=== PATIENT | male | born 1955 | race Hispanic/Latino ===

== ENCOUNTER 2017-12-24 06:59 | Inpatient (IN) | payer MEDICARE ==
--- NOTE | 2017-12-24 08:37 | ED PDOC ---
Arrival/HPI - General Chief Complaint: Abdominal Pain Time Seen by Provider: 12/24/17 08:12 Historian: Patient - History of Present Illness Narrative History of Present Illness (Text): 12/24/17 08:24 62M w/ pmhx significant for tobacco use > 1PPD 20+ yrs, liver disease 2/2 questionable ETOH vs HepC on Urosidiol, presents to [facility] w/ generalized sharp abdominal pain localized to RUQ that started yesterday at 1800. Pain has been persistent since yesterday evening w/ no benefit or relief. Pain does not get better with change in position. States abd feels more distended than normal. Abd pain associated w/ nausea, multiple episodes on non-bilious, bloody vomiting. Admits to passing flatus, having normal BM. Denies: Fevers, chest pain, shortness of breath, numbness/tingling in extremities. Of note: Pt had a Colonoscopy approx 8 years ago w/ no evidence of polyps or masses. Time/Duration: Prior to Arrival, 24 hours Symptom Onset: Sudden Symptom Course: Unchanged Quality: Stabbing Severity Level: 8 Past Medical History - Provider Review Nursing Documentation Reviewed: Yes - Travel History Have you recently traveled outside [place] w/in the past 3 mons?: No - Infectious Disease Hx of Infectious Diseases: None - Tetanus Immunization Tetanus Immunization: Unknown - Cardiac Hx Hypertension: Yes - Renal Hx Renal Disorder: No - Endocrine/Metabolic Hx Endocrine Disorders: No - Hematological/Oncological Other/Comment: cirrhosis of liver, - Psychiatric Hx Substance Use: No - Surgical History Hx Orthopedic Surgery: Yes Other/Comment: shoulder, spine surgery - Suicidal Assessment Feels Threatened In Home Enviroment: No Family/Social History - Physician Review Nursing Documentation Reviewed: Yes Family/Social History: Other (non-contributory) Smoking Status: Heavy Smoker > 10 Cigarettes Daily Hx Alcohol Use: Yes Frequency of alcohol use: Socially Hx Substance Use: No Hx Substance Use Treatment: No Allergies/Home Meds Allergies/Adverse Reactions: Allergies No Known Allergies Allergy (Verified 12/24/17 07:18) Home Medications: Home Meds Medication Instructions Recorded Confirmed Ursodiol [Actigall] 300 mg PO DAILY 12/24/17 12/24/17 Review of Systems - Physician Review All systems were reviewed & negative as marked: Yes - Review of Systems Constitutional: absent: Fatigue, Weight Change, Fevers, Night Sweats Eyes: absent: Vision Changes, Photophobia ENT: absent: Hearing Changes Respiratory: absent: SOB, Cough, Wheezing Cardiovascular: Edema. absent: Chest Pain, Palpitations, Calf Pain Gastrointestinal: Abdominal Pain (mid-epigastric to RUQ pain), Nausea, Vomiting (non-bloody, non-bilious). absent: Constipation, Diarrhea Musculoskeletal: Back Pain (chronic) Neurological: absent: Headache, Dizziness Endocrine: absent: Diaphoresis Hemo/Lymphatic: absent: Adenopathy Physical Exam Vital Signs Temp Pulse Resp BP Pulse Ox 12/24/17 13:51 98 F 66 16 114/64 12/24/17 13:06 97.9 F 74 18 108/62 12/24/17 12:50 98 F 78 18 114/64 12/24/17 11:20 84 16 119/66 100 12/24/17 10:00 76 18 116/70 100 12/24/17 07:15 98.4 F 86 18 128/78 100 Temperature: Afebrile Blood Pressure: Normal Pulse: Tachycardic Respiratory Rate: Normal Appearance: Positive for: Well-Appearing, Non-Toxic, Comfortable Pain Distress: None Mental Status: Positive for: Alert and Oriented X 3 - Systems Exam Head: Present: Atraumatic, Normocephalic Pupils: Present: PERRL Extroacular Muscles: Present: EOMI Conjunctiva: Present: Normal Mouth: Present: Moist Mucous Membranes, Other (Poor dentition) Pharnyx: No: ERYTHEMA, EXUDATE Neck: Present: Normal Range of Motion. No: MIDLINE TENDERNESS Respiratory/Chest: Present: Clear to Auscultation, Good Air Exchange. No: Respiratory Distress, Accessory Muscle Use Cardiovascular: Present: Normal S1, S2, Tachycardic. No: Murmurs Abdomen: Present: Tenderness (Mid-epigastric, and RUQ; - [place]), Distention ( and typanic), Normal Bowel Sounds, Guarding (voluntary guarding). No: Peritoneal Signs, Rebound, Scars Rectal: Present: Hemorrhoids (external hemorrhoids at the 9oclock position), Normal Rectal Tone, Other (heme occult negative). No: Occult Blood Back: Present: Other (scar midline at lumbar; well healed) Upper Extremity: Present: Normal Inspection. No: Cyanosis, Edema Lower Extremity: Present: Edema (+1 pitting edema), Neurovascularly Intact, Other (Abrasion on Right Patella) Neurological: Present: GCS=15, Speech Normal Skin: Present: Warm, Dry, Normal Color. No: Rashes Psychiatric: Present: Alert, Oriented x 3, Normal Insight, Normal Concentration Medical Decision Making ED Course and Treatment: 12/24/17 08:41 - CBC/CMP - CXR/EKG - ABD US - Pepcid/Zofran/Toradol - IVF Hgb- 6.5, Potassium 3.2 T.bili, AST/ALT WNL Will order type and screen. Follow up CT scan. Plan for admission 2/2 Anemia Child-Mccloud Class- B MELD- 10 CT Scan shows 1cm stone Will get f/u US Spoke with hospitalist and stated to reach out to surgery. Surgery evaluated patient, Child-mccloud class B w/ Anemia, Hgb 6.5. 12/24/17 13:11 currently transfusing PRBC discussed w/ Hospitalist in detail about the case, will admit patient for further anemia workup - Lab Interpretations Narrative Lab Interpretation (Text): 12/24/17 09:18 Hgb- 6.5 K+ 3.2 Lab Results: 12/24/17 08:35 12/24/17 08:35 Lab Results 12/24/17 10:30: PT 16.1 H, INR 1.39 H, APTT 27.4 12/24/17 10:00: Blood Type Confirm O POSITIVE 12/24/17 09:10: Blood Type O POSITIVE, Antibody Screen Negative, Crossmatch See Detail, BBK History Checked No verified bt 12/24/17 08:35: Sodium 137, Potassium 3.2 L, Chloride 105, Carbon Dioxide 27, Anion Gap 9 L, BUN 10, Creatinine 0.4 L, Est GFR ( Amer) > 60, Est GFR ( Non-Af Amer) > 60, Random Glucose 118 H, Calcium 7.9 L, Total Bilirubin 0.6, Direct Bilirubin 0.4, AST 37, ALT 18, Alkaline Phosphatase 146 H, Troponin I < 0.01, Total Protein 6.6, Albumin 2.4 L, Globulin 4.2, Albumin/Globulin Ratio 0.6 L 12/24/17 08:35: WBC 5.1, RBC 2.85 L, Hgb 6.5 L*, Hct 22.3 L, MCV 78.2 L, MCH 22.8 L, MCHC 29.1 L, RDW 20.0 H, Plt Count 242, MPV 9.2, Gran % 72.7 H, Lymph % (Auto) 15.1 L, [place] % (Auto) 10.6 H, Eos % (Auto) 0.8 L, Baso % (Auto) 0.8, Gran # 3.71, Lymph # (Auto) 0.8 L, [place] # (Auto) 0.5, Eos # (Auto) 0.0, Baso # ( Auto) 0.04 I have reviewed the lab results: Yes Interpretation: Abnormal lab values - RAD Interpretation Narrative RAD Interpretations (Text): 12/24/17 09:21 CXR- No acute pulmonary disease CT Abd Pelvis w/ IV Contrast: Diffuse ascities, stone meaured approx 1cm in the neck of the GB. US: 1cm stone in neck of GB. GBW thickening. Negative sonographic arnold sign. CBD: 3mm- Cholelithiasis Radiology Orders: 12/24/17 08:16 CHEST PORTABLE [RAD] Stat 12/24/17 08:54 ABD & PELVIS IV CONTRAST ONLY [CT] Stat 12/24/17 11:24 GALLBLADDER & COMMON DUCT [US] Stat Supervisor Endless Track Vehicle: Radiologist - EKG Interpretation EKG Interpretation (Text): 12/24/17 08:42 Normal Sinus Rhythm No signs of ST elevation Interpreted by ED Physician: Yes Type: 12 lead EKG Comparison: No previous EKG avail. - Medication Orders Current Medication Orders: Pantoprazole Sodium (Protonix Inj) 40 mg IVP BID BEL[place] Discontinued Medications Aspirin (Aspirin Chewable) 324 mg PO STAT STA Stop: 12/24/17 08:44 Last Admin: 12/24/17 08:52 Dose: 324 mg Famotidine (Pepcid) 20 mg IVP STAT STA Stop: 12/24/17 08:19 Last Admin: 12/24/17 08:50 Dose: 20 mg IVP Administration Document 12/24/17 08:50 DENNIS (Rec: 12/24/17 08:50 DENNIS [id number]) Charges for Administration # of IVP Administrations 1 Hydromorphone HCl (Dilaudid) 0.5 mg IVP STAT STA Stop: 12/24/17 12:00 Last Admin: 12/24/17 12:24 Dose: 0.5 mg MAR Pain Assessment Document 12/24/17 12:24 DENNIS (Rec: 12/24/17 12:24 DENNIS JACOBSON-PC) Pain Reassessment Is this a pain reassessment? No Sleep Is patient sleeping during reassessment? No Presence of Pain Presence of Pain Yes Pain Scale Used Pain Scale Used Numeric Description Description Intermittent Intensity of Pain at present 5 IVP Administration Document 12/24/17 12:24 DENNIS (Rec: 12/24/17 12:24 DENNIS JACOBSON-PC) Charges for Administration # of IVP Administrations 1 Sodium Chloride (Sodium Chloride 0.9%) 1,000 mls @ 999 mls/hr IV .Q1H1M STA Stop: 12/24/17 12:24 Last Admin: 12/24/17 11:30 Dose: 999 mls/hr eMAR Start Stop Document 12/24/17 11:30 DENNIS (Rec: 12/24/17 12:25 DENNIS [email or web address]) Intravenous Solution Start Date 12/24/17 Start Time 11:30 End Date 12/24/17 End time 12:30 Total Infusion Time 60 Ketorolac Tromethamine (Toradol) 30 mg IVP STAT STA Stop: 12/24/17 08:19 Last Admin: 12/24/17 08:50 Dose: 30 mg STEFANI Pain Assessment Document 12/24/17 08:50 DENNIS (Rec: 12/24/17 08:51 DENNIS JACOBSON-PC) Pain Reassessment Is this a pain reassessment? No Sleep Is patient sleeping during reassessment? No Presence of Pain Presence of Pain Yes IVP Administration Document 12/24/17 08:50 DENNIS (Rec: 12/24/17 08:51 DENNIS JACOBSON-PC) Charges for Administration # of IVP Administrations 1 Ondansetron HCl (Zofran Inj) 4 mg IVP STAT STA Stop: 12/24/17 08:19 Last Admin: 12/24/17 08:52 Dose: 4 mg IVP Administration Document 12/24/17 08:52 DENNIS (Rec: 12/24/17 08:52 DENNIS JACOBSON-PC) Charges for Administration # of IVP Administrations 1 Potassium Chloride (K-Dur 20 Meq Er Tab) 40 meq PO STAT STA Stop: 12/24/17 13:03 Last Admin: 12/24/17 13:11 Dose: 40 meq - PA / VISOR INSTALLER / Resident Statement /DO has reviewed & agrees with the documentation as recorded. /DO has examined the patient and agrees with the treatment plan. Disposition/Present on Arrival - Present on Arrival Any Indicators Present on Arrival: No History of DVT/PE: No History of Uncontrolled Diabetes: No Urinary Catheter: No History of Decub. Ulcer: No History Surgical Site Infection Following: None - Disposition Have Diagnosis and Disposition been Completed?: Yes Diagnosis: Anemia, Cholelithiasis Disposition: HOSPITALIZED Disposition Time: 14:00 Patient Plan: Admission Patient Problems: Current Active Problems Problem Status Onset Anemia Acute Cholelithiasis Acute Condition: STABLE
--- NOTE | 2017-12-24 08:49 | RAD ---
HISTORY: Abdominal pain COMPARISON: No prior. FINDINGS: LUNGS: The lungs are well inflated and clear. PLEURA: No significant pleural effusion identified, no pneumothorax apparent. CARDIOVASCULAR: Normal. OSSEOUS STRUCTURES: No significant abnormalities. VISUALIZED UPPER ABDOMEN: Normal. OTHER FINDINGS: None. IMPRESSION: No active pulmonary disease.
[2017-12-24 08:55] LABS: BASO # 0.04 K/mm3 (0.0-2.0); BASO % 0.8 % (0.0-3.0); EOS % 0.8 % (1.5-5.0); GRAN # 3.71 (1.4-6.5); GRAN % 72.7 % (50.0-68.0); LYMPH # 0.8 (1.2-3.4); LYMPH % 15.1 % (22.0-35.0); MEAN CELL VOLUME 78.2 fl (80.0-105.0); MEAN CORPUSCULAR HEMOGLOBIN 22.8 pg (25.0-35.0); MEAN CORPUSCULAR HGB CONC 29.1 g/dl (31.0-37.0); MEAN PLATELET VOLUME 9.2 fl (7.0-11.0); MONO # 0.5 (0.1-0.6); MONO % 10.6 % (1.0-6.0); RBC 2.85 10^6/uL (3.5-6.1); WHITE BLOOD COUNT 5.1 10^3/ul (4.5-11.0)
[2017-12-24 09:04] LABS: ALB/GLOB RATIO 0.6 (1.1-1.8); ALBUMIN 2.4 g/dL (3.0-4.8); ALT/SGPT 18 U/L (7-56); AST/SGOT 37 U/L (17-59); BILIRUBIN,DIRECT 0.4 mg/dL (0.0-0.4); BLOOD UREA NITROGEN 10 mg/dL (7-21); CALCIUM 7.9 mg/dL (8.4-10.5); GFR AFRICAN-AMERICAN > 60; GFR NON-AFRICAN AMERICAN > 60
[2017-12-24 09:14] LABS: HEMOGLOBIN 6.5 g/dL (14.0-18.0)
[2017-12-24 09:15] LABS: TROPONIN I < 0.01 ng/mL
[2017-12-24] MEDS ORDERED: Iohexol 350 MG/100 ML VIAL ONE (09:35)
--- NOTE | 2017-12-24 10:35 | CT ---
PROCEDURE: CT Abdomen and Pelvis with contrast HISTORY: ABD Pain COMPARISON: None. TECHNIQUE: Contrast dose: 100 cc of Omni 350 Radiation dose: Total exam DLP = 400 mGy-cm. This CT exam was performed using one or more of the following dose reduction techniques: Automated exposure control, adjustment of the mA and/or kV according to patient size, and/or use of iterative reconstruction technique. FINDINGS: LOWER THORAX: Unremarkable. LIVER: Unremarkable. No gross lesion or ductal dilatation. GALLBLADDER AND BILE DUCTS: There is a 9 mm stone in the neck of the gallbladder. PANCREAS: Unremarkable. No gross lesion or ductal dilatation. SPLEEN: Unremarkable. ADRENALS: Unremarkable. No mass. KIDNEYS AND URETERS: Unremarkable. No hydronephrosis. No solid mass. VASCULATURE: Unremarkable. No aortic aneurysm. BOWEL: Unremarkable. No obstruction. No gross mural thickening. APPENDIX: Normal appendix. PERITONEUM: There is a large amount of ascites. The etiology of the ascites is uncertain. There is no evidence of cirrhosis. LYMPH NODES: Unremarkable. No enlarged lymph nodes. BLADDER: Unremarkable. REPRODUCTIVE: Unremarkable. BONES: No acute fracture. OTHER FINDINGS: None. IMPRESSION: Large amount of ascites. The etiology uncertain. 9 mm stone in the gallbladder
[2017-12-24] MEDS ORDERED: Sodium Chloride 0.9% 1,000 ML IV STA (11:24)
[2017-12-24 11:31] LABS: INR 1.39 (0.93-1.08); PARTIAL THROMBOPLASTIN TIME 27.4 Seconds (25.1-36.5); PROTHROMBIN TIME 16.1 SECONDS (9.4-12.5)
[2017-12-24] MEDS ORDERED: HYDROmorphone 0.5 mg/0.5 ml ISec IVP STA (11:59)
--- NOTE | 2017-12-24 12:34 | US ---
HISTORY: Abdominal pain COMPARISON: CT abdomen and pelvis from 12/24/2017. TECHNIQUE: Sonographic evaluation of the right upper quadrant of the abdomen. FINDINGS: LIVER: Measures 15.0 cm in length. There is diffuse increased echogenicity with coarse echotexture and nodular contour. . No intrahepatic bile duct dilatation. GALLBLADDER: There is a solitary 1.1 cm gallstone in the neck of the gallbladder. There is mild gallbladder wall thickening secondary to hepatic disease. The sonographic Valenzuela's sign is negative. COMMON BILE DUCT: Measures 2.8 mm. No stones. No dilatation. PANCREAS: Unremarkable as visualized. No mass. No ductal dilatation. RIGHT KIDNEY: Measures 10.6 cm in length. Normal echogenicity. No calculus, mass, or hydronephrosis. AORTA: No aneurysmal dilatation. IVC: Unremarkable. OTHER FINDINGS: There is mild abdominal ascites. . IMPRESSION: Cirrhosis of liver. Cholelithiasis. Ascites.
[2017-12-24] MEDS ORDERED: Potassium Chloride 20 mEq ER Tab PO STA (13:02)
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
--- NOTE | 2017-12-24 14:48 | CP.PCM.CON ---
History of Present Illness - History of Present Illness History of Present Illness: Surgery Consult: DR. Quinonez Reason for consult: cholelithiasis CC: epigastric abdominal pain, nausea/vomiting-bloody HPI: Patient is a 62 y/o male w/ sign. pmhx of cirrhosis, possibly hx of HepC?, as well as upper GI bleed presents complaining of epigastric abdominal pain that started last night after dinner. He reports 5 episodes of blood streaked emesis. Patient reports noticing bright red blood per rectum. Denies headaches/ dizziness, nausea. He reports similar symptoms in the past, he was told he had bleeding in his stomach seen on EGD however unsure exact source. He denies NSAID use. He reports taking milk of magnesia to help alleviate the symptoms last night but did not help. PMH: cirrhosis (Hep c? vs ETOH abuse), cholelithiasis, upper GI bleed PSH: spine surgery, EGD/colonoscopy Social: Prior etoh abuse, +tobacco use, denies drug use Family hx: noncontributory Review of Systems - Constitutional Constitutional: absent: Anorexia, Chills, Fever - EENT Eyes: absent: Blurred Vision, Change in Vision Ears: absent: Disequilibrium, Dizziness Nose/Mouth/Throat: absent: Nasal Congestion, Nose Pain - Cardiovascular Cardiovascular: absent: Chest Pain, Dyspnea on Exertion - Respiratory Respiratory: absent: Cough, Dyspnea - Gastrointestinal Gastrointestinal: Abdominal Pain, Bloating, Hematochezia, Melena, Nausea, Vomiting - Genitourinary Genitourinary: absent: Hematuria, Pyuria - Musculoskeletal Musculoskeletal: Arthralgias, Back Pain - Integumentary Integumentary: absent: Unusual Bruising, Wounds - Neurological Neurological: absent: Disequilibrium, Dizziness - Psychiatric Psychiatric: Depression. absent: Anxiety - Endocrine Endocrine: absent: Polydipsia, Polyphagia - Hematologic/Lymphatic Hematologic: absent: Easy Bleeding, Easy Bruising Past Patient History - Infectious Disease Hx of Infectious Diseases: None - Tetanus Immunizations Tetanus Immunization: Unknown - Past Social History Smoking Status: Heavy Smoker > 10 Cigarettes Daily - CARDIAC Hx Hypertension: Yes - RENAL Hx Chronic Kidney Disease: No - ENDOCRINE/METABOLIC Hx Endocrine Disorders: No - HEMATOLOGICAL/ONCOLOGICAL Other/Comment: cirrhosis of liver, - PSYCHIATRIC Hx Substance Use: No - SURGICAL HISTORY Hx Orthopedic Surgery: Yes Other/Comment: shoulder, spine surgery Meds Allergies/Adverse Reactions: Allergies Allergy/AdvReac Type Severity Reaction Status Date / Time No Known Allergies Allergy Verified 12/24/17 07:18 - Medications Medications: Current Medications Pantoprazole Sodium (Protonix Inj) 40 mg IVP BID [facility] Physical Exam - Constitutional Appears: Non-toxic, Chronically Ill - Head Exam Head Exam: ATRAUMATIC, NORMOCEPHALIC - Eye Exam Eye Exam: EOMI, Normal appearance - ENT Exam ENT Exam: Mucous Membranes Moist - Respiratory Exam Respiratory Exam: NORMAL BREATHING PATTERN. absent: Respiratory Distress - Cardiovascular Exam Cardiovascular Exam: REGULAR RHYTHM. absent: Tachycardia - GI/Abdominal Exam GI & Abdominal Exam: Distended, Firm, Tenderness (epigastric). absent: Guarding , Hernia, Rebound, Rigid - Rectal Exam Rectal Exam: absent: Black Stool, Bloody Stool - Extremities Exam Extremities exam: Positive for: normal inspection. Negative for: calf tenderness - Neurological Exam Neurological exam: Alert, Oriented x3 - Psychiatric Exam Psychiatric exam: Normal Affect, Normal Mood - Skin Skin Exam: Dry, Normal Color, Warm Results - Vital Signs Recent Vital Signs: Last Vital Signs Temp 98 F 12/24/17 13:51 Pulse 66 12/24/17 13:51 Resp 16 12/24/17 13:51 BP 114/64 12/24/17 13:51 Pulse Ox 100 12/24/17 11:20 - Labs Result Diagrams: 12/24/17 08:35 12/24/17 08:35 Labs: Laboratory Results - last 24 hr 12/24/17 12/24/17 12/24/17 08:35 08:35 09:10 WBC 5.1 RBC 2.85 L Hgb 6.5 L* Hct 22.3 L MCV 78.2 L MCH 22.8 L MCHC 29.1 L RDW 20.0 H Plt Count 242 MPV 9.2 Gran % 72.7 H Lymph % (Auto) 15.1 L Garza % (Auto) 10.6 H Eos % (Auto) 0.8 L Baso % (Auto) 0.8 Gran # 3.71 Lymph # (Auto) 0.8 L Garza # (Auto) 0.5 Eos # (Auto) 0.0 Baso # (Auto) 0.04 PT INR APTT Sodium 137 Potassium 3.2 L Chloride 105 Carbon Dioxide 27 Anion Gap 9 L BUN 10 Creatinine 0.4 L Est GFR ( Amer) > 60 Est GFR (Non-Af Amer) > 60 Random Glucose 118 H Calcium 7.9 L Total Bilirubin 0.6 Direct Bilirubin 0.4 AST 37 ALT 18 Alkaline Phosphatase 146 H Troponin I < 0.01 Total Protein 6.6 Albumin 2.4 L Globulin 4.2 Albumin/Globulin Ratio 0.6 L Blood Type O POSITIVE Blood Type Confirm Antibody Screen Negative Crossmatch See Detail BBK History Checked No verified bt 12/24/17 12/24/17 10:00 10:30 WBC RBC Hgb Hct MCV MCH MCHC RDW Plt Count MPV Gran % Lymph % (Auto) Garza % (Auto) Eos % (Auto) Baso % (Auto) Gran # Lymph # (Auto) Garza # (Auto) Eos # (Auto) Baso # (Auto) PT 16.1 H INR 1.39 H APTT 27.4 Sodium Potassium Chloride Carbon Dioxide Anion Gap BUN Creatinine Est GFR ( Amer) Est GFR (Non-Af Amer) Random Glucose Calcium Total Bilirubin Direct Bilirubin AST ALT Alkaline Phosphatase Troponin I Total Protein Albumin Globulin Albumin/Globulin Ratio Blood Type Blood Type Confirm O POSITIVE Antibody Screen Crossmatch BBK History Checked Assessment & Plan - Assessment and Plan (Free Text) Assessment: 62M with abdominal pain and anemia, r/o GI bleed, also found to have cholelithiasis Plan: Recommend GI consult for possible EGD Protonix BID transfuse prn daily hgb MELD 10, Child Mccloud B: needs medical optimization prior to any elective surgical intervention more concern for possible GI bleed, ulcer disease vs varices, as source of symptoms d/w Dr. Cristiano Ram PGY3 - Date & Time Date: 12/24/17 Time: 13:00
[2017-12-24 16:43] LABS: IRON 103 ug/dL (45-180)
[2017-12-24 16:52] LABS: % IRON SATURATION 32 % (20-55); TOTAL IRON BINDING CAPACITY 324 ug/dL (261-462)
[2017-12-24] MEDS: HYDROmorphone 0.5 mg/0.5 ml ISec IVP PRN (18:05)
[2017-12-24 19:00] VITALS: BMI 19.6
[2017-12-24] MEDS ORDERED: Pneumococcal 23-Valent Vaccine IM ONE (19:01)
[2017-12-24] MEDS ORDERED: Influenza Vaccine 60 mcg/0.5 mL SYR (4YR UP) IM ONE (19:01)
--- NOTE | 2017-12-24 23:54 | CARD ---
APPROVED REPORT EKG Measurement Heart [id number] MD [id number] <Conclusion> Normal sinus rhythm Cannot rule out Anterior infarct, age undetermined Abnormal ECG
[2017-12-25] MEDS: HYDROmorphone 0.5 mg/0.5 ml ISec IVP PRN ×3 (01:19→22:27)
[2017-12-25 07:22] LABS: BASO # 0.05 K/mm3 (0.0-2.0); BASO % 1.1 % (0.0-3.0); EOS # 0.1 (0.0-0.7); EOS % 1.6 % (1.5-5.0); GRAN # 3.05 (1.4-6.5); GRAN % 68.3 % (50.0-68.0); LYMPH # 0.8 (1.2-3.4); LYMPH % 18.3 % (22.0-35.0); MEAN CELL VOLUME 80.5 fl (80.0-105.0); MEAN CORPUSCULAR HEMOGLOBIN 24.1 pg (25.0-35.0); MEAN PLATELET VOLUME 9.5 fl (7.0-11.0); MONO # 0.5 (0.1-0.6); MONO % 10.7 % (1.0-6.0); RBC 3.44 10^6/uL (3.5-6.1); RED CELL DISTRIBUTION WIDTH 18.6 % (11.5-14.5); WHITE BLOOD COUNT 4.5 10^3/ul (4.5-11.0)
[2017-12-25 07:30] LABS: HEMOGLOBIN 8.3 g/dL (14.0-18.0)
[2017-12-25 07:37] LABS: INR 1.42 (0.93-1.08); PARTIAL THROMBOPLASTIN TIME 29.6 Seconds (25.1-36.5); PROTHROMBIN TIME 16.5 SECONDS (9.4-12.5)
[2017-12-25 07:43] LABS: ALB/GLOB RATIO 0.5 (1.1-1.8); ALBUMIN 2.1 g/dL (3.0-4.8); ALT/SGPT 22 U/L (7-56); AST/SGOT 30 U/L (17-59); BLOOD UREA NITROGEN 8 mg/dL (7-21); GFR AFRICAN-AMERICAN > 60; GFR NON-AFRICAN AMERICAN > 60
[2017-12-25] MEDS ORDERED: Pneumococcal 23-Valent Vaccine IM ONE (10:54)
[2017-12-25] MEDS ORDERED: Influenza Vaccine 60 mcg/0.5 mL SYR (4YR UP) IM ONE (10:54)
--- NOTE | 2017-12-25 10:54 | CP.PCM.PN ---
Subjective - Date & Time of Evaluation Date of Evaluation: 12/25/17 Time of Evaluation: 10:49 - Subjective Subjective: Surgery Pt feels better. Pain improved. GOt 2 PRBC yesterday. Denies Nausea or vomiting. Denies hematemesis, melena or hematochezia Objective - Vital Signs/Intake and Output Vital Signs (last 24 hours): Temp Pulse Resp BP Pulse Ox 98.0 F 66 18 120/74 100 12/25/17 07:30 12/25/17 07:30 12/25/17 07:30 12/25/17 07:30 12/25/17 07:30 Intake and Output: 12/25/17 12/25/17 06:59 18:59 Intake Total 897 Balance 897 - Medications Medications: Current Medications Hydromorphone HCl (Dilaudid) 0.5 mg IVP Q4H PRN PRN Reason: Pain, severe (8-10) Last Admin: 12/25/17 08:01 Dose: 0.5 mg Ceftriaxone Sodium (Rocephin 2 Gm Ivpb) 2 gm in 100 mls @ 100 mls/hr IVPB DAILY [facility] PRN Reason: Protocol Lorazepam (Ativan) 1 mg IVP Q6H PRN; Protocol PRN Reason: Anxiety Nicotine (Nicoderm Cq) 1 patch TD DAILY [facility] Last Admin: 12/25/17 09:45 Dose: 1 patch Ondansetron HCl (Zofran Inj) 4 mg IVP Q6H PRN PRN Reason: Nausea/Vomiting Last Admin: 12/25/17 09:51 Dose: 4 mg Pantoprazole Sodium (Protonix Inj) 40 mg IVP BID [facility] Last Admin: 12/25/17 09:50 Dose: 40 mg Ursodiol (Actigall) 300 mg PO DAILY [facility] Last Admin: 12/25/17 09:54 Dose: 300 mg - Labs Labs: 12/25/17 07:00 12/25/17 07:00 PT 16.5 SECONDS (9.4-12.5) H 12/25/17 07:00 INR 1.42 (0.93-1.08) H 12/25/17 07:00 APTT 29.6 Seconds (25.1-36.5) 12/25/17 07:00 - Constitutional Appears: No Acute Distress, Cachectic, Chronically Ill - Head Exam Head Exam: ATRAUMATIC, NORMAL INSPECTION, NORMOCEPHALIC - Eye Exam Eye Exam: EOMI, Normal appearance, PERRL Pupil Exam: NORMAL ACCOMODATION, PERRL - ENT Exam ENT Exam: Mucous Membranes Moist, Normal Exam - Neck Exam Neck Exam: Full ROM, Normal Inspection. absent: Lymphadenopathy - Respiratory Exam Respiratory Exam: Clear to Ausculation Bilateral, NORMAL BREATHING PATTERN - Cardiovascular Exam Cardiovascular Exam: REGULAR RHYTHM, +S1, +S2. absent: Murmur - GI/Abdominal Exam GI & Abdominal Exam: Distended, Firm, Guarding, Soft, Normal Bowel Sounds. absent: Rigid, Tenderness, Mass, Rebound Additional comments: Fluids waves. - Extremities Exam Extremities Exam: Full ROM, Normal Capillary Refill, Normal Inspection. absent : Joint Swelling, Pedal Edema - Back Exam Back Exam: NORMAL INSPECTION - Neurological Exam Neurological Exam: Alert, Awake, CN II-XII Intact, Normal Gait, Oriented x3 - Psychiatric Exam Psychiatric exam: Normal Affect, Normal Mood - Skin Skin Exam: Dry, Intact, Normal Color, Warm Assessment and Plan - Assessment and Plan (Free Text) Assessment: Abdominal pain and distension 2/2 cirrhosis, ascites. Also found to have cholelithiasis Hgb 8.3 MOnitor CBC Transfuse as needed GI on board PPI Medical managment With cirrhosis and ascites, pt is a poor surgical candidate and high risk for surgical complication. Child pringle B, MELD 10. RIsk outweighs surgical benefits Seen and discussed with Dr. Quinonez
[2017-12-25] MEDS: cefTRIAXone 2 GM IN NS 2 GM/100 ML BAG IVPB SCH (11:28)
[2017-12-25 12:44] LABS: FERRITIN 11.3 ng/mL
[2017-12-25 13:15] LABS: FOLATE 5.3 ng/mL
--- NOTE | 2017-12-25 14:36 | CP.PCM.PN ---
<PhilipLina - Last Filed: 12/25/17 14:50> Subjective - Date & Time of Evaluation Date of Evaluation: 12/25/17 Time of Evaluation: 07:30 - Subjective Subjective: Lina Palacios DO PGY1 - IM Progress Note Patient seen and examined at bedside. Per nursing staff, no acute events overnight. Patient reports moderate improvement in his pain, nausea, and vomiting. He has not yet had a bowel movement, but is passing gas. He did have some nausea after a clear liquid breakfast, but has not vomited. Objective - Vital Signs/Intake and Output Vital Signs (last 24 hours): Temp Pulse Resp BP Pulse Ox 98.0 F 66 18 120/74 100 12/25/17 07:30 12/25/17 07:30 12/25/17 07:30 12/25/17 07:30 12/25/17 07:30 Intake and Output: 12/25/17 12/25/17 06:59 18:59 Intake Total 897 Balance 897 - Medications Medications: Current Medications Docusate Sodium (Colace) 100 mg PO BID [facility] Hydromorphone HCl (Dilaudid) 0.5 mg IVP Q4H PRN PRN Reason: Pain, severe (8-10) Last Admin: 12/25/17 08:01 Dose: 0.5 mg Ceftriaxone Sodium (Rocephin 2 Gm Ivpb) 2 gm in 100 mls @ 100 mls/hr IVPB DAILY [facility] PRN Reason: Protocol Last Admin: 12/25/17 11:28 Dose: 100 mls/hr Lorazepam (Ativan) 1 mg IVP Q6H PRN; Protocol PRN Reason: Anxiety Nicotine (Nicoderm Cq) 1 patch TD DAILY [facility] Last Admin: 12/25/17 09:45 Dose: 1 patch Ondansetron HCl (Zofran Inj) 4 mg IVP Q6H PRN PRN Reason: Nausea/Vomiting Last Admin: 12/25/17 09:51 Dose: 4 mg Pantoprazole Sodium (Protonix Inj) 40 mg IVP BID [facility] Last Admin: 12/25/17 09:50 Dose: 40 mg Polyethylene Glycol (Miralax) 17 gm PO BID [facility] Ursodiol (Actigall) 300 mg PO DAILY [facility] Last Admin: 12/25/17 09:54 Dose: 300 mg - Labs Labs: 12/25/17 07:00 12/25/17 07:00 PT 16.5 SECONDS (9.4-12.5) H 12/25/17 07:00 INR 1.42 (0.93-1.08) H 12/25/17 07:00 APTT 29.6 Seconds (25.1-36.5) 12/25/17 07:00 - Constitutional Appears: Non-toxic, No Acute Distress - Head Exam Head Exam: ATRAUMATIC, NORMOCEPHALIC - Eye Exam Eye Exam: EOMI, Normal appearance, PERRL - ENT Exam ENT Exam: Mucous Membranes Moist - Respiratory Exam Respiratory Exam: Clear to Ausculation Bilateral, NORMAL BREATHING PATTERN - Cardiovascular Exam Cardiovascular Exam: RRR, +S1, +S2 - GI/Abdominal Exam GI & Abdominal Exam: Soft, Tenderness (mild, epigastric), Normal Bowel Sounds. absent: Distended, Firm, Guarding, Rigid - Extremities Exam Extremities Exam: absent: Calf Tenderness, Pedal Edema - Neurological Exam Neurological Exam: Alert, Awake, Oriented x3 - Psychiatric Exam Psychiatric exam: Normal Affect, Normal Mood - Skin Skin Exam: Dry, Intact, Normal Color Assessment and Plan - Assessment and Plan (Free Text) Assessment: Mr Ross, 62M, with PMHx ETOH abuse (last drink yesterday), liver cirrhosis due to ETOH vs HepC on Urosidiol, C/O intractable abdominal pain x 1 day. He vomited 5 times with blood streak in sputum. Also with anemia s/p 2uPRBC, r/o GIB, large ascites, and cholelithiasis without cholecystitis. Intractable abdominal pain with vomiting - Pain, nausea, and vomiting slightly improved - Plan for diagnostic/therapeutic paracentesis to r/o SBP - CLD, advance as tolerated - Dilaudid 0.5 q4 PRN - Zofran PRN - Miralax and Colace for constipation; dulcolax once, PRN for constipation Symptomatic cholecystitis - Surgery: No plan for surgery now. optimize medically prior to surgery - CT A/P: 1 cm stone. - U/S abdomen: 1.1cm Cholethilasis at neck of gallbladder with mild GB wall thickening. Nondilated CBD - Continue Ursodiol 300 daily Aniema - unknown chronicity - s/p 2u PRBC with appropriate elevation in H/H - Hemodynamically stable; R/O GI bleed, upper vs lower; per discussion with GI , outpatient endoscopy - Recheck CBC with AM labs - Unlikely hemolytic anemia, total/direct bili normal. 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 lelia Avalos from taking care of - PT eval s/r/d/w Dr. Craven <Alexey Craven - Last Filed: 12/25/17 15:35> Objective - Vital Signs/Intake and Output Vital Signs (last 24 hours): Temp Pulse Resp BP Pulse Ox 97.6 F 69 18 160/81 H 99 12/25/17 14:00 12/25/17 14:00 12/25/17 14:00 12/25/17 14:00 12/25/17 14:00 Intake and Output: 12/25/17 12/25/17 06:59 18:59 Intake Total 897 Balance 897 - Medications Medications: Current Medications Docusate Sodium (Colace) 100 mg PO BID [facility] Hydromorphone HCl (Dilaudid) 0.5 mg IVP Q4H PRN PRN Reason: Pain, severe (8-10) Last Admin: 12/25/17 08:01 Dose: 0.5 mg Ceftriaxone Sodium (Rocephin 2 Gm Ivpb) 2 gm in 100 mls @ 100 mls/hr IVPB DAILY [facility] PRN Reason: Protocol Last Admin: 12/25/17 11:28 Dose: 100 mls/hr Lorazepam (Ativan) 1 mg IVP Q6H PRN; Protocol PRN Reason: Anxiety Nicotine (Nicoderm Cq) 1 patch TD DAILY [facility] Last Admin: 12/25/17 09:45 Dose: 1 patch Ondansetron HCl (Zofran Inj) 4 mg IVP Q6H PRN PRN Reason: Nausea/Vomiting Last Admin: 12/25/17 09:51 Dose: 4 mg Pantoprazole Sodium (Protonix Inj) 40 mg IVP BID [facility] Last Admin: 12/25/17 09:50 Dose: 40 mg Polyethylene Glycol (Miralax) 17 gm PO BID [facility] Ursodiol (Actigall) 300 mg PO DAILY [facility] Last Admin: 12/25/17 09:54 Dose: 300 mg - Labs Labs: 12/25/17 07:00 12/25/17 07:00 PT 16.5 SECONDS (9.4-12.5) H 12/25/17 07:00 INR 1.42 (0.93-1.08) H 12/25/17 07:00 APTT 29.6 Seconds (25.1-36.5) 12/25/17 07:00 Attending/Attestation - Attestation I have personally seen and examined this patient.: Yes I have fully participated in the care of the patient.: Yes I have reviewed all pertinent clinical information, including history, physical exam and plan: Yes Notes (Text): 12/25/17 15:32 62 year old male with past medical history of alcohol abuse, liver cirrhosis and hepatitis C who presented with complaint of abdominal pain, distention and constipation. He was found to have anemia, cholelithiasis, and ascites. He is s/p 2 units prbc transfusion. GI and surgery evaluations were appreciated. Plan is for possible paracentesis today. He was counselled on alcohol abstinence. Alexey Craven MD Hospitalist.
[2017-12-25] MEDS ORDERED: Albumin Human 25% (12.5 gm/50 ml) IV ONE (16:06)
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
[2017-12-25] MEDS: POLYETHYLENE GLYCOL 3350 17 GM/Dose PACKET PO SCH (17:47)
--- NOTE | 2017-12-25 18:07 | CP.PCM.PN ---
Subjective - Date & Time of Evaluation Date of Evaluation: 12/25/17 Time of Evaluation: 18:04 - Subjective Subjective: Location of ascites confirmed by ultrasound. Preparation under steril conditions 1/2 Liter of ascites fluid removed. Given 25g albumin Pressure dressing applied Objective - Vital Signs/Intake and Output Vital Signs (last 24 hours): Temp Pulse Resp BP Pulse Ox 97.6 F 69 18 160/81 H 99 12/25/17 14:00 12/25/17 14:00 12/25/17 14:00 12/25/17 14:00 12/25/17 14:00 Intake and Output: 12/25/17 12/25/17 06:59 18:59 Intake Total 897 Balance 897 - Medications Medications: Current Medications Docusate Sodium (Colace) 100 mg PO BID [facility] Last Admin: 12/25/17 17:46 Dose: 100 mg Hydromorphone HCl (Dilaudid) 0.5 mg IVP Q4H PRN PRN Reason: Pain, severe (8-10) Last Admin: 12/25/17 08:01 Dose: 0.5 mg Ceftriaxone Sodium (Rocephin 2 Gm Ivpb) 2 gm in 100 mls @ 100 mls/hr IVPB DAILY [facility] PRN Reason: Protocol Last Admin: 12/25/17 11:28 Dose: 100 mls/hr Lorazepam (Ativan) 1 mg IVP Q6H PRN; Protocol PRN Reason: Anxiety Nicotine (Nicoderm Cq) 1 patch TD DAILY [facility] Last Admin: 12/25/17 09:45 Dose: 1 patch Ondansetron HCl (Zofran Inj) 4 mg IVP Q6H PRN PRN Reason: Nausea/Vomiting Last Admin: 12/25/17 09:51 Dose: 4 mg Pantoprazole Sodium (Protonix Inj) 40 mg IVP BID [facility] Last Admin: 12/25/17 17:45 Dose: 40 mg Polyethylene Glycol (Miralax) 17 gm PO BID [facility] Last Admin: 12/25/17 17:47 Dose: 17 gm Ursodiol (Actigall) 300 mg PO DAILY [facility] Last Admin: 12/25/17 09:54 Dose: 300 mg - Labs Labs: 12/25/17 07:00 12/25/17 07:00 PT 16.5 SECONDS (9.4-12.5) H 12/25/17 07:00 INR 1.42 (0.93-1.08) H 12/25/17 07:00 APTT 29.6 Seconds (25.1-36.5) 12/25/17 07:00 Procedures Attestation:: I certify that I have explained the specified Operation(s) or Procedure(s), risks, benefits and reasonable alternatives to the Patient and/or other person responsible. The opportunity was given to ask questions and all questions answered - Paracentesis Consent Obtained: written consent Time Out Performed: Yes (Steril condition) Indication: Ascites Procedure: diagnostic paracentesis Location: RLQ Local Anesthetic Used: lidocaine 1%
[2017-12-25 18:12] LABS: URINE APPEARANCE CLEAR (CLEAR); URINE BILIRUBIN NEGATIVE (NEGATIVE); URINE BLOOD NEGATIVE (NEGATIVE); URINE COLOR YELLOW (YELLOW); URINE GLUCOSE (UA) NEGATIVE (NEGATIVE); URINE LEUKOCYTE ESTERASE NEGATIVE Leu/uL (NEGATIVE); URINE PROTEIN NEGATIVE mg/dL (<30 mg/dL)
[2017-12-25 18:29] LABS: BODY FLUID TYPE PERITONEAL/ASCITES
[2017-12-25 18:40] LABS: BARBITURATES, UR NEGATIVE (NEGATIVE); BENZODIAZEPINES, UR NEGATIVE (NEGATIVE); OPIATES, UR POSITIVE (NEGATIVE); PHENCYCLIDINE, UR NEGATIVE (NEGATIVE)
[2017-12-25 18:40] LABS: BF GROSS APPEARANCE CLEAR (CLEAR); BODY FLUID TOTAL COUNT 100 (0-0)
[2017-12-26 01:36] VITALS: RESP 20
[2017-12-26] MEDS: HYDROmorphone 0.5 mg/0.5 ml ISec IVP PRN (01:57)
[2017-12-26 07:10] LABS: BASO # 0.05 K/mm3 (0.0-2.0); BASO % 1.3 % (0.0-3.0); EOS # 0.1 (0.0-0.7); EOS % 1.8 % (1.5-5.0); GRAN # 2.55 (1.4-6.5); GRAN % 66.2 % (50.0-68.0); HEMOGLOBIN 8.1 g/dL (14.0-18.0); LYMPH # 0.8 (1.2-3.4); LYMPH % 20.8 % (22.0-35.0); MEAN CELL VOLUME 81.1 fl (80.0-105.0); MEAN CORPUSCULAR HEMOGLOBIN 23.9 pg (25.0-35.0); MEAN CORPUSCULAR HGB CONC 29.5 g/dl (31.0-37.0); MEAN PLATELET VOLUME 9.7 fl (7.0-11.0); MONO # 0.4 (0.1-0.6); MONO % 9.9 % (1.0-6.0); RBC 3.39 10^6/uL (3.5-6.1); RED CELL DISTRIBUTION WIDTH 19.1 % (11.5-14.5); WHITE BLOOD COUNT 3.9 10^3/ul (4.5-11.0)
[2017-12-26 07:19] LABS: INR 1.62 (0.93-1.08); PARTIAL THROMBOPLASTIN TIME 30.3 Seconds (25.1-36.5); PROTHROMBIN TIME 18.8 SECONDS (9.4-12.5)
[2017-12-26] MEDS ORDERED: Oxycodone/Acetaminophen 5/325 mg Tab PO PRN (07:27)
[2017-12-26 07:34] LABS: ALB/GLOB RATIO 0.6 (1.1-1.8); ALBUMIN 2.3 g/dL (3.0-4.8); ALT/SGPT 23 U/L (7-56); AST/SGOT 29 U/L (17-59); BLOOD UREA NITROGEN 6 mg/dL (7-21); CALCIUM 8.1 mg/dL (8.4-10.5); GFR AFRICAN-AMERICAN > 60; GFR NON-AFRICAN AMERICAN > 60
[2017-12-26 08:31] VITALS: BP 124/89; PULSE 94; TEMP 98.7; O2SAT 97
[2017-12-26] MEDS: cefTRIAXone 2 GM IN NS 2 GM/100 ML BAG IVPB SCH (09:25)
[2017-12-26] MEDS: POLYETHYLENE GLYCOL 3350 17 GM/Dose PACKET PO SCH (09:25)
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
--- NOTE | 2017-12-26 21:00 | CP.PCM.DIS ---
<Lina Palacios - Last Filed: 12/26/17 20:56> Provider - Provider Date of Admission: 12/24/17 14:42 Attending physician: Alexey Craven MD Consults: GI: Deyanira Surgery: Cristiano Time Spent in preparation of Discharge (in minutes): 35 Diagnosis - Discharge Diagnosis (1) Ascites Status: Chronic Priority: Medium (2) Anemia Status: Acute Priority: High (3) Cholelithiasis Status: Acute Priority: Medium Hospital Course - Lab Results Lab Results: Micro Results 12/25/17 18:21 Ascitic Fluid Gram Stain - Final 12/25/17 18:21 Ascitic Fluid Body Fluid Culture - Preliminary NO GROWTH AFTER 24 HOURS Most Recent Lab Values WBC 3.9 10^3/ul (4.5-11.0) L 12/26/17 06:35 RBC 3.39 10^6/uL (3.5-6.1) L 12/26/17 06:35 Hgb 8.1 g/dL (14.0-18.0) L 12/26/17 06:35 Hct 27.5 % (42.0-52.0) L 12/26/17 06:35 MCV 81.1 fl (80.0-105.0) 12/26/17 06:35 MCH 23.9 pg (25.0-35.0) L 12/26/17 06:35 MCHC 29.5 g/dl (31.0-37.0) L 12/26/17 06:35 RDW 19.1 % (11.5-14.5) H 12/26/17 06:35 Plt Count 193 10^3/uL (120.0-450.0) 12/26/17 06:35 MPV 9.7 fl (7.0-11.0) 12/26/17 06:35 Gran % 66.2 % (50.0-68.0) 12/26/17 06:35 Lymph % (Auto) 20.8 % (22.0-35.0) L 12/26/17 06:35 [place] % (Auto) 9.9 % (1.0-6.0) H 12/26/17 06:35 Eos % (Auto) 1.8 % (1.5-5.0) 12/26/17 06:35 Baso % (Auto) 1.3 % (0.0-3.0) 12/26/17 06:35 Gran # 2.55 (1.4-6.5) 12/26/17 06:35 Lymph # (Auto) 0.8 (1.2-3.4) L 12/26/17 06:35 [place] # (Auto) 0.4 (0.1-0.6) 12/26/17 06:35 Eos # (Auto) 0.1 (0.0-0.7) 12/26/17 06:35 Baso # (Auto) 0.05 K/mm3 (0.0-2.0) 12/26/17 06:35 Retic Count 2.56 % (0.5-1.5) H 12/24/17 16:20 Haptoglobin 181.8 mg/dL (30.0-200.0) 12/24/17 16:20 PT 18.8 SECONDS (9.4-12.5) H 12/26/17 06:35 INR 1.62 (0.93-1.08) H 12/26/17 06:35 APTT 30.3 Seconds (25.1-36.5) 12/26/17 06:35 Sodium 135 mmol/L (132-148) 12/26/17 06:35 Potassium 3.4 mmol/L (3.6-5.0) L 12/26/17 06:35 Chloride 105 mmol/L (98-107) 12/26/17 06:35 Carbon Dioxide 25 mmol/L (21-33) 12/26/17 06:35 Anion Gap 9 (10-20) L 12/26/17 06:35 BUN 6 mg/dL (7-21) L 12/26/17 06:35 Creatinine 0.4 mg/dl (0.8-1.5) L 12/26/17 06:35 Est GFR ( Amer) > 60 12/26/17 06:35 Est GFR (Non-Af Amer) > 60 12/26/17 06:35 Random Glucose 85 mg/dL (70-110) 12/26/17 06:35 Calcium 8.1 mg/dL (8.4-10.5) L 12/26/17 06:35 Iron 103 ug/dL (45-180) 12/24/17 16:20 TIBC 324 ug/dL (261-462) 12/24/17 16:20 % Saturation 32 % (20-55) 12/24/17 16:20 Ferritin 11.3 ng/mL 12/24/17 16:20 Total Bilirubin 1.0 mg/dL (0.2-1.3) 12/26/17 06:35 Direct Bilirubin 0.7 mg/dL (0.0-0.4) H 12/25/17 08:50 AST 29 U/L (17-59) 12/26/17 06:35 ALT 23 U/L (7-56) 12/26/17 06:35 Alkaline Phosphatase 100 U/L (38-126) 12/26/17 06:35 Lactate Dehydrogenase 313 U/L (333-699) L 12/24/17 16:20 Troponin I < 0.01 ng/mL 12/24/17 08:35 Total Protein 6.1 g/dL (5.8-8.3) 12/26/17 06:35 Albumin 2.3 g/dL (3.0-4.8) L 12/26/17 06:35 Globulin 3.8 gm/dL 12/26/17 06:35 Albumin/Globulin Ratio 0.6 (1.1-1.8) L 12/26/17 06:35 Lipase 45 U/L (23-300) 12/24/17 16:20 Vitamin B12 734 pg/mL (239-931) 12/24/17 16:20 Folate 5.3 ng/mL 12/24/17 16:20 Urine Color Yellow (YELLOW) 12/25/17 16:30 Urine Appearance Clear (CLEAR) 12/25/17 16:30 Urine pH 7.0 (4.7-8.0) 12/25/17 16:30 Ur Specific [place] 1.020 (1.005-1.035) 12/25/17 16:30 Urine Protein Negative mg/dL (<30 mg/dL) 12/25/17 16:30 Urine Glucose (UA) Negative mg/dL (NEGATIVE) 12/25/17 16:30 Urine Ketones Trace mg/dL (NEGATIVE) H 12/25/17 16:30 Urine Blood Negative (NEGATIVE) 12/25/17 16:30 Urine Nitrate Negative (NEGATIVE) 12/25/17 16:30 Urine Bilirubin Negative (NEGATIVE) 12/25/17 16:30 Urine Urobilinogen 4.0 E.U./dL (<1 E.U./dL) H 12/25/17 16:30 Ur Leukocyte Esterase Negative Agustin/uL (NEGATIVE) 12/25/17 16:30 Fluid Source Peritoneal/ascites 12/25/17 18:21 Fluid Appearance Clear (CLEAR) 12/25/17 18:21 Fluid WBC 55.0 /uL (0.0-300.0) 12/25/17 18:21 Fluid RBC 520.0 /uL (0.0-0.0) H 12/25/17 18:21 Fluid Tot Cell Count 100 (0-0) H 12/25/17 18:21 Fluid Neutrophils 9.5 % (0-0) H 12/25/17 18:21 Fluid Lymphocytes 90.5 % (0-0) H 12/25/17 18:21 Fld Monocyte/Macrophag TEST NOT PERFORMED 12/25/17 18:21 Fluid Comment TEST NOT PERFORMED 12/25/17 18:21 Urine Opiates Screen Positive (NEGATIVE) H 12/25/17 16:30 Urine Methadone Screen Negative (NEGATIVE) 12/25/17 16:30 Ur Barbiturates Screen Negative (NEGATIVE) 12/25/17 16:30 Ur Phencyclidine Scrn Negative (NEGATIVE) 12/25/17 16:30 Ur Amphetamines Screen Negative (NEGATIVE) 12/25/17 16:30 U Benzodiazepines Scrn Negative (NEGATIVE) 12/25/17 16:30 U Oth Cocaine Metabols Negative (NEGATIVE) 12/25/17 16:30 U Cannabinoids Screen Negative (NEGATIVE) 12/25/17 16:30 Alcohol, Quantitative < 10 mg/dL (0-10) 12/24/17 16:20 Blood Type O POSITIVE 12/24/17 09:10 Blood Type Confirm O POSITIVE 12/24/17 10:00 Antibody Screen Negative 12/24/17 09:10 Crossmatch See Detail 12/24/17 09:10 BBK History Checked No verified bt 12/24/17 09:10 - Hospital Course Hospital Course: Mr Ross, 62M, with PMHx tobacco use > 1PPD 20+ yrs, liver cirrhosis due to ETOH vs HepC on Urosidiol, C/O abdominal pain x 1 day. Patient was also complaining of vomiting, abdominal distension, and constipation. Patient had CT of the abdomen which showed 1.1 cm cholelithiasis at the neck of gallbladder with mild GB wall thickening, without CBD dilation. CT also noted large amount of abdominal ascites. On admission, patient was noted to be severely anemic, though only minimally symptomatic, admitted to [facility]. Patient was transfused 2u PRBC with appropriate elevation in H&H. Per discussion with GI, patient should undergo outpatient endoscopy to rule out GI bleed. Patient also underwent paracentesis, but only approximately 500cc was drained. IR was consulted for further drainage. Today, patient chose to leave AMA due to issues at home, reports that [place] [facility] [place] that he would like to leave to take care of her. Patient was informed of possible consequences of leaving prior to further workup of his abdominal pain, and management of his anemia and cholelithiasis, including infection, further bleeding, possible sepsis and shock. Patient did tolerate a regular diet without nausea or vomiting, and did have some improvement in his pain, and insisted on leaving the hospital. Patient was instructed to follow up with his primary care doctor within one week, or return to the hospital if possible. Patient signed out of the hospital against medical advice. Discharge Exam - Head Exam Head Exam: ATRAUMATIC, NORMOCEPHALIC - Additional Findings Additional findings: Patient signed out AMA. He was awake, alert, and oriented to person, place, and time. Mentation was intact. Patient verbalized understanding and acceptance of the risks and consequences of signing out AMA, as well as the possible benefits of staying in the hospital. Discharge Plan - Follow Up Plan Condition: STABLE Disposition: AGAINST MEDICAL ADVICE Referrals: [email or web address], [Non-Staff] - Follow up with primary <Alexey Craven - Last Filed: 12/27/17 08:00> Provider - Provider Date of Admission: 12/24/17 14:42 Attending physician: Alexey Craven MD Hospital Course - Lab Results Lab Results: Micro Results 12/25/17 18:21 Ascitic Fluid Gram Stain - Final 12/25/17 18:21 Ascitic Fluid Body Fluid Culture - Preliminary NO GROWTH AFTER 24 HOURS Most Recent Lab Values WBC 3.9 10^3/ul (4.5-11.0) L 12/26/17 06:35 RBC 3.39 10^6/uL (3.5-6.1) L 12/26/17 06:35 Hgb 8.1 g/dL (14.0-18.0) L 12/26/17 06:35 Hct 27.5 % (42.0-52.0) L 12/26/17 06:35 MCV 81.1 fl (80.0-105.0) 12/26/17 06:35 MCH 23.9 pg (25.0-35.0) L 12/26/17 06:35 MCHC 29.5 g/dl (31.0-37.0) L 12/26/17 06:35 RDW 19.1 % (11.5-14.5) H 12/26/17 06:35 Plt Count 193 10^3/uL (120.0-450.0) 12/26/17 06:35 MPV 9.7 fl (7.0-11.0) 12/26/17 06:35 Gran % 66.2 % (50.0-68.0) 12/26/17 06:35 Lymph % (Auto) 20.8 % (22.0-35.0) L 12/26/17 06:35 [place] % (Auto) 9.9 % (1.0-6.0) H 12/26/17 06:35 Eos % (Auto) 1.8 % (1.5-5.0) 12/26/17 06:35 Baso % (Auto) 1.3 % (0.0-3.0) 12/26/17 06:35 Gran # 2.55 (1.4-6.5) 12/26/17 06:35 Lymph # (Auto) 0.8 (1.2-3.4) L 12/26/17 06:35 [place] # (Auto) 0.4 (0.1-0.6) 12/26/17 06:35 Eos # (Auto) 0.1 (0.0-0.7) 12/26/17 06:35 Baso # (Auto) 0.05 K/mm3 (0.0-2.0) 12/26/17 06:35 Retic Count 2.56 % (0.5-1.5) H 12/24/17 16:20 Haptoglobin 181.8 mg/dL (30.0-200.0) 12/24/17 16:20 PT 18.8 SECONDS (9.4-12.5) H 12/26/17 06:35 INR 1.62 (0.93-1.08) H 12/26/17 06:35 APTT 30.3 Seconds (25.1-36.5) 12/26/17 06:35 Sodium 135 mmol/L (132-148) 12/26/17 06:35 Potassium 3.4 mmol/L (3.6-5.0) L 12/26/17 06:35 Chloride 105 mmol/L (98-107) 12/26/17 06:35 Carbon Dioxide 25 mmol/L (21-33) 12/26/17 06:35 Anion Gap 9 (10-20) L 12/26/17 06:35 BUN 6 mg/dL (7-21) L 12/26/17 06:35 Creatinine 0.4 mg/dl (0.8-1.5) L 12/26/17 06:35 Est GFR ( Amer) > 60 12/26/17 06:35 Est GFR (Non-Af Amer) > 60 12/26/17 06:35 Random Glucose 85 mg/dL (70-110) 12/26/17 06:35 Calcium 8.1 mg/dL (8.4-10.5) L 12/26/17 06:35 Iron 103 ug/dL (45-180) 12/24/17 16:20 TIBC 324 ug/dL (261-462) 12/24/17 16:20 % Saturation 32 % (20-55) 12/24/17 16:20 Ferritin 11.3 ng/mL 12/24/17 16:20 Total Bilirubin 1.0 mg/dL (0.2-1.3) 12/26/17 06:35 Direct Bilirubin 0.7 mg/dL (0.0-0.4) H 12/25/17 08:50 AST 29 U/L (17-59) 12/26/17 06:35 ALT 23 U/L (7-56) 12/26/17 06:35 Alkaline Phosphatase 100 U/L (38-126) 12/26/17 06:35 Lactate Dehydrogenase 313 U/L (333-699) L 12/24/17 16:20 Troponin I < 0.01 ng/mL 12/24/17 08:35 Total Protein 6.1 g/dL (5.8-8.3) 12/26/17 06:35 Albumin 2.3 g/dL (3.0-4.8) L 12/26/17 06:35 Globulin 3.8 gm/dL 12/26/17 06:35 Albumin/Globulin Ratio 0.6 (1.1-1.8) L 12/26/17 06:35 Lipase 45 U/L (23-300) 12/24/17 16:20 Vitamin B12 734 pg/mL (239-931) 12/24/17 16:20 Folate 5.3 ng/mL 12/24/17 16:20 Urine Color Yellow (YELLOW) 12/25/17 16:30 Urine Appearance Clear (CLEAR) 12/25/17 16:30 Urine pH 7.0 (4.7-8.0) 12/25/17 16:30 Ur Specific [place] 1.020 (1.005-1.035) 12/25/17 16:30 Urine Protein Negative mg/dL (<30 mg/dL) 12/25/17 16:30 Urine Glucose (UA) Negative mg/dL (NEGATIVE) 12/25/17 16:30 Urine Ketones Trace mg/dL (NEGATIVE) H 12/25/17 16:30 Urine Blood Negative (NEGATIVE) 12/25/17 16:30 Urine Nitrate Negative (NEGATIVE) 12/25/17 16:30 Urine Bilirubin Negative (NEGATIVE) 12/25/17 16:30 Urine Urobilinogen 4.0 E.U./dL (<1 E.U./dL) H 12/25/17 16:30 Ur Leukocyte Esterase Negative Agustin/uL (NEGATIVE) 12/25/17 16:30 Fluid Source Peritoneal/ascites 12/25/17 18:21 Fluid Appearance Clear (CLEAR) 12/25/17 18:21 Fluid WBC 55.0 /uL (0.0-300.0) 12/25/17 18:21 Fluid RBC 520.0 /uL (0.0-0.0) H 12/25/17 18:21 Fluid Tot Cell Count 100 (0-0) H 12/25/17 18:21 Fluid Neutrophils 9.5 % (0-0) H 12/25/17 18:21 Fluid Lymphocytes 90.5 % (0-0) H 12/25/17 18:21 Fld Monocyte/Macrophag TEST NOT PERFORMED 12/25/17 18:21 Fluid Comment TEST NOT PERFORMED 12/25/17 18:21 Urine Opiates Screen Positive (NEGATIVE) H 12/25/17 16:30 Urine Methadone Screen Negative (NEGATIVE) 12/25/17 16:30 Ur Barbiturates Screen Negative (NEGATIVE) 12/25/17 16:30 Ur Phencyclidine Scrn Negative (NEGATIVE) 12/25/17 16:30 Ur Amphetamines Screen Negative (NEGATIVE) 12/25/17 16:30 U Benzodiazepines Scrn Negative (NEGATIVE) 12/25/17 16:30 U Oth Cocaine Metabols Negative (NEGATIVE) 12/25/17 16:30 U Cannabinoids Screen Negative (NEGATIVE) 12/25/17 16:30 Alcohol, Quantitative < 10 mg/dL (0-10) 12/24/17 16:20 Blood Type O POSITIVE 12/24/17 09:10 Blood Type Confirm O POSITIVE 12/24/17 10:00 Antibody Screen Negative 12/24/17 09:10 Crossmatch See Detail 12/24/17 09:10 BBK History Checked No verified bt 12/24/17 09:10 Attending/Attestation - Attestation I have personally seen and examined this patient.: Yes I have fully participated in the care of the patient.: Yes I have reviewed all pertinent clinical information, including history, physical exam and plan: Yes Notes (Text): 12/26/17 62 year old male with past medical history of alcohol abuse, liver cirrhosis and hepatitis C who presented with complaint of abdominal pain, distention and constipation. He was found to have anemia, cholelithiasis, and ascites. He is s/p 2 units prbc transfusion. He was seen by GI and surgery. He has paracentesis yesterday. He was counselled on alcohol abstinence. He signed out AMA this morning prior to my rounds. Alexey Craven MD Hospitalist.
== END 2017-12-26 11:17 | disposition left against medical advice (07) | DRG 434 ==
LOC: ED 06:59 → ERH 14:42 → 5RSO 16:42
PROVIDERS: ADMIT Internal Medicine; ATTEND Internal Medicine
PROC: 30233N1 Transfusion of Nonautologous Red Blood Cells into Peripheral Vein, Percutaneous Approach (ICD-10-PCS; 2017-12-24)
PROC: 0W9G3ZZ Drainage of Peritoneal Cavity, Percutaneous Approach (ICD-10-PCS; principal; 2017-12-25)
DX: K70.31 Alcoholic cirrhosis of liver with ascites (principal); F10.10 Alcohol abuse, uncomplicated; B19.20 Unspecified viral hepatitis C without hepatic coma; K59.00 Constipation, unspecified; D64.9 Anemia, unspecified; K80.20 Calculus of gallbladder without cholecystitis without obstruction; F17.210 Nicotine dependence, cigarettes, uncomplicated

== ENCOUNTER 2018-03-16 08:50 | Emergency (ER) | payer MEDICARE ==
[2018-03-16 09:06] VITALS: RESP 18; O2SAT 100; BMI 18.9
[2018-03-16] MEDS ORDERED: Sodium Chloride 0.9% 1,000 ML IV SCH (09:15)
--- NOTE | 2018-03-16 09:19 | ED PDOC ---
Arrival/HPI - General Chief Complaint: Abdominal Pain Time Seen by Provider: 03/16/18 09:03 Historian: Patient, EMS - History of Present Illness Narrative History of Present Illness (Text): 03/16/18 09:15 pt p/w + 2-3 days onset of lower b/l leg swelling and abd swelling; pt states he also started noticing persistent and waxing and waning mid abd pain with occasional sharp pains noted; pt states at most pain is 7-8/10; pt states he has been vomiting as well, with no appetite; pt states ~ 6 episodes of vomiting started 2 days ago; pt states weakness/lightheadedness; no fever/chills/sweats, no cp/sob/palpitations, no urinary/bowel changes; + constant belching is noted with + frequent nausea, no fall/trauma/sick contact, no travel; pt had a recent CT performed few days ago, ordered by his Hepatologists; pt states he last received paracentesis was ~ 1 month ago at [facility] pt is here for further eval; pt's without other complaints. PCP: Shayne Salcedo Hepatologists: Dr Hayes Time/Duration: < week (2 days ago) Symptom Onset: Sudden Symptom Course: Unchanged Quality: Tightness, Cramping Severity Level: Severe Activities at Onset: Rest Context: Home Past Medical History - Provider Review Nursing Documentation Reviewed: Yes - Travel History Have you recently traveled outside [place] w/in the past 3 mons?: No - Past History Past History: No Previous - Infectious Disease Hx of Infectious Diseases: None - Tetanus Immunization Tetanus Immunization: Unknown - Cardiac Hx Cardiac Disorders: No - Pulmonary Hx Respiratory Disorders: No - Neurological Hx Neurological Disorder: No - HEENT Hx HEENT Disorder: No - Renal Hx Renal Disorder: No - Endocrine/Metabolic Hx Endocrine Disorders: No - Hematological/Oncological Hx Blood Disorders: Yes Hx Cirrhosis: Yes (LIVER) - Integumentary Hx Dermatological Disorder: No - Musculoskeletal/Rheumatological Hx Musculoskeletal Disorders: Yes Hx Back Pain: Yes - Gastrointestinal Hx Gastrointestinal Disorders: No - Genitourinary/Gynecological Hx Genitourinary Disorders: No - Psychiatric Hx Psychophysiologic Disorder: No Hx Emotional Abuse: No Hx Physical Abuse: No Hx Substance Use: No - Surgical History Other/Comment: RT SHOULDER, PARACENTESIS OF ASCITES AND SPINAL SURGERY - Anesthesia Hx Anesthesia: Yes Hx Anesthesia Reactions: No Hx Malignant Hyperthermia: No - Suicidal Assessment Feels Threatened In Home Enviroment: No Family/Social History - Physician Review Nursing Documentation Reviewed: Yes Family/Social History: No Known Family HX Smoking Status: Heavy Smoker > 10 Cigarettes Daily Hx Alcohol Use: Yes (occasional beer had "couple sips" yesterday) Hx Substance Use: No Hx Substance Use Treatment: No Allergies/Home Meds Allergies/Adverse Reactions: Allergies morphine Allergy (Verified 02/04/18 12:34) RASH Penicillins Allergy (Verified 02/04/18 12:33) RASH Review of Systems - Review of Systems Constitutional: Fatigue. absent: Weight Change, Fevers Eyes: Normal ENT: Normal Respiratory: Normal. absent: SOB, Cough Cardiovascular: Normal. absent: Chest Pain Gastrointestinal: Abdominal Pain, Nausea, Vomiting, Appetite Changes Genitourinary Male: Normal Musculoskeletal: Other (b/l leg welling). absent: Arthralgias, Back Pain, Neck Pain Skin: Normal Neurological: Normal Endocrine: Normal Hemo/Lymphatic: Normal Psychiatric: Normal Physical Exam - Physical Exam Narrative Physical Exam (Text): 03/16/18 09:21 General: alert/awake, GCS = 15, oriented x 3, resting in bed, uncomfortable, cooperative, interactive; NAD Head: NC/AT; mild bi-temporal wasting EYE: PERRLA, EOMI, sclera anicteric, no nystagmus, no photophobia; visual field intact b/l Facial: WNL Oral: uvula/tongue are midline, no exudate/lesions, no drooling/stridor, no dysphonia; poor dentitions; dry oral mucosa NECK: intact ROM, no midline tenderness, no nuchal rigidity, no meningeal signs ; no step off Chest: CTA b/l, no w/r/r; no tachypenia, no accessory muscle use noted Cardiac: +S1, +S2, no m/r/r, no tachycardia Abdominal: +BS, soft, + mild-moderate abd distention noted, faint mid abd tenderness noted on exam, well nourished patient; no masses/rebound/guarding/ rigidity; no arnold's sign, no mcburney's point tenderness Extremities: intact ROM, strength 5/5 grossly intact in all limbs, neurovasc intact b/l; + ambulatory; reflex +2/2 BACK: no step off, no midline tenderness, NO crepitus, no gross deformities noted; Intact ROM SKIN: cap refill ~ 1 sec, no ulcerations, no petechiae, no rashes; mild pallor noted, no gross jaundice noted NEURO: CNII-XII WNL, no facial asymmetries, no slurr speech, oriented x 3 NIH stroke scale ~ 0 Psych: normal insight, normal affect; follows command with ease Vital Signs Reviewed: Yes Vital Signs Temp Pulse Resp BP Pulse Ox 03/16/18 09:37 144/80 03/16/18 08:51 97.4 F L 61 18 144/80 100 Temperature: Afebrile Blood Pressure: Normal Pulse: Regular Respiratory Rate: Normal Appearance: Positive for: Well-Appearing, Non-Toxic, Uncomfortable, Cachectic. No: Ill-Appearing, Unkept Pain Distress: None Mental Status: Positive for: Alert and Oriented X 3 - Systems Exam Head: Present: Atraumatic, Normocephalic Medical Decision Making ED Course and Treatment: 03/16/18 09:22 Impression: abd swelling, leg swelling, abd pain, n/v i have consider all the differential diagnosis regarding pt's chief medical complaints/clinical findings, including but are not limited to: cirrhosis, abd pain, ? obstruction, worsening liver disease, r/o dvt A/P: abd pain/leg swelling, n/v - labs - iv - xray - us - supportive care - observe/reevaluation 1100 pt is resting in bed, comfortable, NAD pt is awaiting his diagnostic results given pt's symptoms, abd pain, abd swelling with lower leg swelling, will recommend patient for admission 03/16/18 11:27 Dr. Damon, hospitalist pumping station supervisor, made aware of patient's emergent complaints , diagnostic finds, and emergency department management. Is agreeable with emergency department admission/observation placement. Requests contact with Dr. Hayes for GI consult. [id number] I spoke with GI fellow for Dr Hayes, made aware, will continue to eval/monitor patient 03/16/18 12:09 Discussed admission with patient, who is aware of the recommendation for further treatment however he states that he has business to attend to and does NOT want to be admitted to the hospital. Pt thought he was able to receive paracentesis today and be discharged home. patient wants to leave AMA pt is aware that potential life-threatening illness remains and pt can lose limb /or worse case, can pt is aware that he is to see HIS doctor as soon as possible pt is aware that if he changes his mind, he is encouraged to return to ED immediately for further care/management patient expressed understanding The patient is choosing to leave against medical advice. I have personally explained to the patient that choosing to do so may result in permanent bodily harm or . I have discussed at great length that without further evaluation and monitoring there may be unforeseen circumstances and/or deterioration causing permanent bodily harm or as a result of their choice. The patient is alert, oriented, and shows the mental capacity to make clear decisions regarding the patients health care at this time. The patient continues to wish to leave against medical advice. In light of the patients decision to leave against medical advice, follow-up has been arranged and the patient is aware of the importance to following up as instructed. The patient has been advised that they should return to the emergency room immediately if they change their mind at any time, or if their condition begins to change or worsen in any way. vital signs remained stable Re-evaluation Time: 11:30 Reassessment Condition: Unchanged - Lab Interpretations Lab Results: 03/16/18 09:30 03/16/18 09:30 Lab Results 03/16/18 09:30: Ammonia 14 03/16/18 09:30: pO2 34, VBG pH 7.33, VBG pCO2 51.0, VBG HCO3 26.9, VBG Total CO2 28.5 H, VBG O2 Sat (Calc) 65.4 H, VBG Base Excess 0.2, VBG Potassium 3.9, Sodium 138.0, Chloride 108.0 H, Glucose 101, Lactate 1.9, FiO2 21.0, Venous Blood Potassium 3.9 03/16/18 09:30: Sodium 140, Chloride 107, Potassium 4.4, Carbon Dioxide 24, Anion Gap 13, BUN 8, Creatinine 0.5 L, Est GFR ( Amer) > 60, Est GFR (Non -Af Amer) > 60, Random Glucose 102, Calcium 8.3 L, Total Bilirubin 0.4, AST 22, ALT 18, Alkaline Phosphatase 175 H D, Total Protein 7.3, Albumin 2.9 L, Globulin 4.4, Albumin/Globulin Ratio 0.7 L, Lipase 52 03/16/18 09:30: PT 16.1 H, INR 1.39 H, APTT 31.1 03/16/18 09:30: WBC 4.7 D, RBC 3.66, Hgb 8.5 L, Hct 27.6 L, MCV 75.4 L D, MCH 23.2 L, MCHC 30.8 L, RDW 18.5 H, Plt Count 237, MPV 10.3, Gran % 64.2, Lymph % ( Auto) 19.2 L, Davidson % (Auto) 13.9 H, Eos % (Auto) 2.1, Baso % (Auto) 0.6, Gran # 3.00, Lymph # (Auto) 0.9 L, Davidson # (Auto) 0.7 H, Eos # (Auto) 0.1, Baso # (Auto ) 0.03 I have reviewed the lab results: Yes Interpretation: Abnormal lab values (low h/h (chronic - stable)) - RAD Interpretation Narrative RAD Interpretations (Text): 03/16/18 11:14 Ultrasound of Abdomen reviewed by radiologist, shows: FINDINGS: LIVER: Measures liver exhibits normal size measuring approximately 15.5 cm in CC dimension liver demonstrates increased echotexture consistent with this patient' s history of cirrhosis. Obvious hepatic masses or collections seen on images presented. Parenchyma. No mass. No intrahepatic bile duct dilatation. Massive amount of abdominal ascites better appreciated on prior CT scan GALLBLADDER: Unremarkable. No gallstones. COMMON BILE DUCT: Measures 5.0 mm. No stones. No dilatation. PANCREAS: Not visualized due to body habitus bowel gas and large amount of ascites. RIGHT KIDNEY: Normal size. Normal echogenicity. No calculus, mass, calculus or mass seen. No mayela hydronephrosis however the right renal pelvis and proximal ureter slightly dilated LEFT KIDNEY: Normal size. Normal echogenicity. No calculus, mass, or hydronephrosis. SPLEEN: Normal in size and contour. No mass. AORTA: No aneurysmal dilatation. IVC: Unremarkable. OTHER FINDINGS: None. IMPRESSION: Hepatic cirrhosis. Massive ascites. Note these findings are seen to much better advantage on prior CT scan 03/14/2018 Pancreas not visualized due to body habitus bowel gas and ascites 03/16/18 11:16 CT of Liver performed on 03/14/2018 reviewed by radiologist, showed: FINDINGS: LOWER THORAX: Unremarkable. LIVER: Unremarkable. No gross lesion or ductal dilatation. GALLBLADDER AND BILE DUCTS: 7 mm gallstone PANCREAS: Unremarkable. No gross lesion or ductal dilatation. SPLEEN: Unremarkable. ADRENALS: Unremarkable. No mass. KIDNEYS AND URETERS: Unremarkable. No hydronephrosis. No solid mass. VASCULATURE: Calcifications are seen in the aorta. There is stenosis at the origin of the SMA and celiac BOWEL: Unremarkable. No obstruction. No gross mural thickening. APPENDIX: Normal appendix. PERITONEUM: Severe ascites LYMPH NODES: Unremarkable. No enlarged lymph nodes. BLADDER: Unremarkable. REPRODUCTIVE: Unremarkable. BONES: No acute fracture. OTHER FINDINGS: None. IMPRESSION: There is severe ascites. No CT findings of cirrhosis. No hepatic lesions. No evidence of portal hypertension 03/16/18 11:28 Chest X-ray reviewed by radiologist, shows: HISTORY: weakness COMPARISON: Comparison made with chest radiograph and CT scan of the abdomen pelvis both dated 12/24/2017, the latter of which also imaged both lung bases. Interstitial markings are also slightly increased and coarsened with a few scattered peribronchial cuffing changes. Findings could represent sequela of reactive/ inflammatory airway disease or viral illness. TECHNIQUE: Chest PA and lateral FINDINGS: LUNGS: No acute consolidation. Mild atelectasis and or scarring changes again seen both lung bases right greater than left. . Questionable tiny right apical granuloma PLEURA: No significant pleural effusion identified. No pneumothorax apparent. CARDIOVASCULAR: Normal. OSSEOUS STRUCTURES: No significant abnormalities. VISUALIZED UPPER ABDOMEN: Normal. OTHER FINDINGS: None. IMPRESSION: No acute consolidation. Mild bibasilar atelectasis/ scarring changes. Interstitial markings are also slightly increased and coarsened with a few scattered peribronchial cuffing changes. Findings could represent sequela of reactive/inflammatory airway disease or viral illness. 03/16/18 11:30 US of Lower Extremity is negative for DVT. Radiology Orders: 03/16/18 09:13 ABDOMEN COMPLETE [US] Stat 03/16/18 09:14 CHEST TWO VIEWS (PA/LAT) [RAD] Stat DUPLEX LOWER EXTRM VEIN BILAT [US] Stat Floor Care Specialist: Radiologist - EKG Interpretation EKG Interpretation (Text): 03/16/18 12:50 NSR at 60 bpm, normal axis, no ectopy, no st-t changes, NORMAL EKG otherwise; unchanged compare with old ekg 11/2017 Interpreted by ED Physician: Yes Type: 12 lead EKG Comparison: Similar to previous EKG - Medication Orders Current Medication Orders: Sodium Chloride (Sodium Chloride 0.9%) 1,000 mls @ 100 mls/hr IV .Q10H [place] Last Admin: 03/16/18 09:38 Dose: 100 mls/hr eMAR Start Stop Document 03/16/18 09:38 SRE (Rec: 03/16/18 09:38 SRE [id number]) Intravenous Solution Start Date 03/16/18 Start Time 09:35 End Date 03/16/18 Discontinued Medications Furosemide (Lasix) 40 mg IVP STAT STA Stop: 03/16/18 09:15 Last Admin: 03/16/18 09:37 Dose: 40 mg MAR Blood Pressure Document 03/16/18 09:37 SRE (Rec: 03/16/18 09:37 SRE [id number]) Blood Pressure Blood Pressure (100/60-150/90) 144/80 IVP Administration Document 03/16/18 09:37 SRE (Rec: 03/16/18 09:37 SRE [id number]) Charges for Administration # of IVP Administrations 1 Ondansetron HCl (Zofran Inj) 4 mg IVP STAT STA Stop: 03/16/18 09:22 Last Admin: 03/16/18 09:37 Dose: 4 mg IVP Administration Document 03/16/18 09:37 SRE (Rec: 03/16/18 09:37 SRE [id number]) Charges for Administration # of IVP Administrations 1 - Scribe Statement The provider has reviewed the documentation as recorded by the Scribe Mikie Conley. All medical record entries made by the Scribe were at my direction and personally dictated by me. I have reviewed the chart and agree that the record accurately reflects my personal performance of the history, physical exam, medical decision making, and the department course for this patient. I have also personally directed, reviewed, and agree with the discharge instructions and disposition. Disposition/Present on Arrival - Present on Arrival Any Indicators Present on Arrival: No History of DVT/PE: No History of Uncontrolled Diabetes: No Urinary Catheter: No History of Decub. Ulcer: No History Surgical Site Infection Following: None - Disposition Have Diagnosis and Disposition been Completed?: Yes Diagnosis: Ascites, Abdominal pain, Alcoholic cirrhosis, Nausea and vomiting Disposition: AGAINST MEDICAL ADVICE Disposition Time: 12:00 Patient Problems: Current Active Problems Problem Status Onset Ascites Chronic Abdominal pain Acute Alcoholic cirrhosis Acute Nausea and vomiting Acute Condition: STABLE
[2018-03-16 09:43] LABS: VENOUS BLOOD GAS BASE EXCESS 0.2 mmol/L (0.0-2.0); VENOUS BLOOD GAS PO2 34 mm/Hg (30-55); VENOUS BLOOD PH 7.33 (7.32-7.43)
[2018-03-16 09:45] LABS: BASO # 0.03 K/mm3 (0.0-2.0); BASO % 0.6 % (0.0-3.0); EOS # 0.1 (0.0-0.7); EOS % 2.1 % (1.5-5.0); GRAN % 64.2 % (50.0-68.0); HEMOGLOBIN 8.5 g/dL (14.0-18.0); LYMPH # 0.9 (1.2-3.4); LYMPH % 19.2 % (22.0-35.0); MEAN CELL VOLUME 75.4 fl (80.0-105.0); MEAN CORPUSCULAR HEMOGLOBIN 23.2 pg (25.0-35.0); MEAN CORPUSCULAR HGB CONC 30.8 g/dl (31.0-37.0); MEAN PLATELET VOLUME 10.3 fl (7.0-11.0); MONO # 0.7 (0.1-0.6); MONO % 13.9 % (1.0-6.0); RBC 3.66 10^6/uL (3.5-6.1); RED CELL DISTRIBUTION WIDTH 18.5 % (11.5-14.5); WHITE BLOOD COUNT 4.7 10^3/ul (4.5-11.0)
[2018-03-16 09:51] LABS: INR 1.39 (0.93-1.08); PARTIAL THROMBOPLASTIN TIME 31.1 Seconds (25.1-36.5); PROTHROMBIN TIME 16.1 SECONDS (9.4-12.5)
[2018-03-16 09:54] LABS: ALB/GLOB RATIO 0.7 (1.1-1.8); ALBUMIN 2.9 g/dL (3.0-4.8); ALT/SGPT 18 U/L (7-56); AST/SGOT 22 U/L (17-59); BLOOD UREA NITROGEN 8 mg/dL (7-21); CALCIUM 8.3 mg/dL (8.4-10.5); GFR AFRICAN-AMERICAN > 60; GFR NON-AFRICAN AMERICAN > 60; LIPASE 52 U/L (23-300)
--- NOTE | 2018-03-16 10:56 | US ---
HISTORY: Abdominal swelling. COMPARISON: Comparison made with CT scan abdomen pelvis 03/14/2018 gallbladder ultrasound dated 12/25/2019 TECHNIQUE: Sonographic evaluation of the abdomen. FINDINGS: LIVER: Measures liver exhibits normal size measuring approximately 15.5 cm in CC dimension liver demonstrates increased echotexture consistent with this patient's history of cirrhosis. Obvious hepatic masses or collections seen on images presented. Parenchyma. No mass. No intrahepatic bile duct dilatation. Massive amount of abdominal ascites better appreciated on prior CT scan GALLBLADDER: Unremarkable. No gallstones. COMMON BILE DUCT: Measures 5.0 mm. No stones. No dilatation. PANCREAS: Not visualized due to body habitus bowel gas and large amount of ascites. RIGHT KIDNEY: Normal size. Normal echogenicity. No calculus, mass, calculus or mass seen. No mayela hydronephrosis however the right renal pelvis and proximal ureter slightly dilated LEFT KIDNEY: Normal size. Normal echogenicity. No calculus, mass, or hydronephrosis. SPLEEN: Normal in size and contour. No mass. AORTA: No aneurysmal dilatation. IVC: Unremarkable. OTHER FINDINGS: None. IMPRESSION: Hepatic cirrhosis. Massive ascites. Note these findings are seen to much better advantage on prior CT scan 03/14/2018 Pancreas not visualized due to body habitus bowel gas and ascites
--- NOTE | 2018-03-16 11:25 | RAD ---
HISTORY: weakness COMPARISON: Comparison made with chest radiograph and CT scan of the abdomen pelvis both dated 12/24/2017, the latter of which also imaged both lung bases. . Interstitial markings are also slightly increased and coarsened with a few scattered peribronchial cuffing changes. Findings could represent sequela of reactive/inflammatory airway disease or viral illness. TECHNIQUE: Chest PA and lateral FINDINGS: LUNGS: No acute consolidation. Mild atelectasis and or scarring changes again seen both lung bases right greater than left. . Questionable tiny right apical granuloma PLEURA: No significant pleural effusion identified. No pneumothorax apparent. CARDIOVASCULAR: Normal. OSSEOUS STRUCTURES: No significant abnormalities. VISUALIZED UPPER ABDOMEN: Normal. OTHER FINDINGS: None. IMPRESSION: No acute consolidation. Mild bibasilar atelectasis/ scarring changes. Interstitial markings are also slightly increased and coarsened with a few scattered peribronchial cuffing changes. Findings could represent sequela of reactive/inflammatory airway disease or viral illness.
[2018-03-16 13:36] VITALS: BP 132/76; PULSE 62; TEMP 97.8
--- NOTE | 2018-03-16 14:03 | CARD ---
APPROVED REPORT EKG Measurement Heart [id number] MN 148P [id number] <Conclusion> Normal sinus rhythm Normal ECG
--- NOTE | 2018-03-17 08:05 | US ---
HISTORY: Leg pain and swelling. Evaluate for DVT PHYSICIAN(S): Fausto Jones MD. TECHNIQUE: Duplex sonography and color-flow Doppler with graded compression were used to evaluate the deep venous systems of both lower extremities. FINDINGS: The visualized deep venous systems of both lower extremities are sonographically normal and compressible. Normal wave forms and augmentation are seen. There is no sonographic evidence for deep venous thrombosis in the visualized segments of both lower extremities. IMPRESSION: No sonographic evidence for deep venous thrombosis in the visualized segments of both lower extremities.
== END 2018-03-16 12:30 | disposition left against medical advice (07) ==
LOC: ED 08:50 → ERH 11:29 → UNDOADMIN 11:29 → ERH 13:01
DX: K70.31 Alcoholic cirrhosis of liver with ascites (principal); R10.9 Unspecified abdominal pain; R11.2 Nausea with vomiting, unspecified
CPT/HCPCS: 71046; 76700; 80053; 82140; 82803; 83690; 85025; 85610; 85730; 93005; 93970; 96374; 96375; 99284; J1940; J2405; J7030

== ENCOUNTER 2018-03-27 19:54 | Observation (INO) | payer MEDICARE ==
[2018-03-27 20:00] VITALS: BMI 18.3
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
[2018-03-27 21:06] LABS: BASO # 0.08 K/mm3 (0.0-2.0); BASO % 2.1 % (0.0-3.0); EOS # 0.1 (0.0-0.7); EOS % 1.9 % (1.5-5.0); GRAN # 1.75 (1.4-6.5); HEMOGLOBIN 8.4 g/dL (14.0-18.0); LYMPH # 1.3 (1.2-3.4); LYMPH % 33.5 % (22.0-35.0); MEAN CELL VOLUME 74.1 fl (80.0-105.0); MEAN CORPUSCULAR HEMOGLOBIN 22.7 pg (25.0-35.0); MEAN CORPUSCULAR HGB CONC 30.7 g/dl (31.0-37.0); MEAN PLATELET VOLUME 9.4 fl (7.0-11.0); MONO # 0.6 (0.1-0.6); MONO % 15.5 % (1.0-6.0); RBC 3.7 10^6/uL (3.5-6.1); RED CELL DISTRIBUTION WIDTH 18.2 % (11.5-14.5); WHITE BLOOD COUNT 3.7 10^3/ul (4.5-11.0)
[2018-03-27 21:12] LABS: INR 1.37 (0.93-1.08); PARTIAL THROMBOPLASTIN TIME 30.5 Seconds (25.1-36.5); PROTHROMBIN TIME 15.7 SECONDS (9.4-12.5)
[2018-03-27 21:16] LABS: ALB/GLOB RATIO 0.6 (1.1-1.8); ALBUMIN 2.6 g/dL (3.0-4.8); ALT/SGPT 17 U/L (7-56); AST/SGOT 21 U/L (17-59); BLOOD UREA NITROGEN 9 mg/dL (7-21); CALCIUM 8.3 mg/dL (8.4-10.5); GFR AFRICAN-AMERICAN > 60; GFR NON-AFRICAN AMERICAN > 60; LIPASE 95 U/L (23-300)
[2018-03-27 21:25] LABS: TROPONIN I < 0.01 ng/mL
[2018-03-27] MEDS ORDERED: Iohexol 350 MG/100 ML VIAL ONE (21:54)
--- NOTE | 2018-03-27 22:37 | ED PDOC ---
Physical Exam Vital Signs Temp Pulse Resp BP Pulse Ox 03/27/18 23:58 80 18 126/74 99 03/27/18 20:58 83 18 144/79 99 03/27/18 20:08 98.0 F 96 H 18 135/80 100 Medical Decision Making ED Course and Treatment: 03/27/18 22:30 Case endorsed to me by Donna Kaur. alcoholic cirrhosis,ascites,Hep c recent paracentesis yesterday with abdominal pain now with pending CT Abdomen and Pelvis, reassessment, and disposition. 03/27/18 23:38 CT Abdomen and Pelvis shows: Lung bases: Heart size is normal. There coronary artery calcifications. There is mild distal esophageal wall thickening. There is a 5 mm right lower lobe pulmonary nodule. There is atelectasis/scarring at the lung bases. ABDOMEN: Liver: There is fatty infiltration of the liver. Gallbladder and bile ducts: Gallbladder is distended with a calcified stone.Common duct is unremarkable. Pancreas: Pancreas is mildly atrophic. Spleen: unremarkable Adrenals: unremarkable Kidneys and ureters: There are small low attenuation left renal lesions too small to characterize. Kidneys and ureters are otherwise unremarkable. Stomach and bowel: Stomach is incompletely distended which accentuates the gastric wall. Bowel rotation is normal. There is duodenal and jejunal wall and fold thickening. Small bowel is dilated with air-fluid levels. There is fluid and air throughout the small bowel. Terminal ileum is mildly distended with fluid and air. The retrocecal contains a small amount of air. There is fluid, stool and air throughout the colon. PELVIS: Appendix: See stomach and bowel Bladder: Bladder is partially distended. Reproductive: Seminal vesicles and prostate are unremarkable. ABDOMEN and PELVIS: Intraperitoneal space: There is ascites in the abdomen and pelvis.there is decreased ascites compared to the prior study 12/24/17 There is no free air. Bones/joints: Bony structures are osteopenic. There degenerative changes. There is laminectomy and fusion L4/L5/S1. Soft tissues: unremarkable Vasculature: There are calcified phleboliths. There are vascular calcifications. There are small paraesophageal varices. Lymph nodes: There is no pathologic adenopathy. IMPRESSION: 5 mm right lower lobe pulmonary nodule; gallstone, no ductal dilatation; dilated fluidfilled small and large bowel more suggestive of ileus than obstruction; continued ascites, etiology unknown Additional nonemergent findings as described above. 03/27/18 23:57 Case discussed with medical parasitologist electrical controls engineer, who is aware and agrees with plan. 03/28/18 00:[address] Marcos, who is aware and agrees with plan. Accepts pt in to hospitalist service. Pt will go to [facility] observation for abdominal pain, r/o ileus vs. spontaneous bacterial peritonitis. - Lab Interpretations Lab Results: 03/27/18 20:45 03/27/18 20:45 Lab Results 03/27/18 20:45: Sodium 140, Potassium 4.1, Chloride 106, Carbon Dioxide 26, Anion Gap 12, BUN 9, Creatinine 0.5 L, Est GFR ( Amer) > 60, Est GFR (Non -Af Amer) > 60, Random Glucose 99, Calcium 8.3 L, Magnesium 1.7, Total Bilirubin 0.5, AST 21, ALT 17, Alkaline Phosphatase 150 H, Lactate Dehydrogenase 352, Total Creatine Kinase 22 L, Troponin I < 0.01, Total Protein 6.8, Albumin 2.6 L, Globulin 4.2, Albumin/Globulin Ratio 0.6 L, Lipase 95 03/27/18 20:45: PT 15.7 H, INR 1.37 H, APTT 30.5 03/27/18 20:45: WBC 3.7 L D, RBC 3.70, Hgb 8.4 L, Hct 27.4 L, MCV 74.1 L, MCH 22.7 L, MCHC 30.7 L, RDW 18.2 H, Plt Count 244, MPV 9.4, Gran % 47.0 L, Lymph % (Auto) 33.5, [place] % (Auto) 15.5 H, Eos % (Auto) 1.9, Baso % (Auto) 2.1, Gran # 1.75, Lymph # (Auto) 1.3, [place] # (Auto) 0.6, Eos # (Auto) 0.1, Baso # (Auto) 0.08 - RAD Interpretation Radiology Orders: 03/27/18 21:20 ABDOMEN & PELVIS [ABD & PELVIS IV CONTRAST ONLY] [CT] Stat Cleaning Specialist: Radiologist - Medication Orders Current Medication Orders: Aztreonam (Azactam 1 Gm) 100 mls @ 100 mls/hr IVPB STAT STA PRN Reason: Protocol Stop: 03/28/18 00:58 Levofloxacin/Dextrose (Levaquin 750mg) 750 mg in 150 mls @ 100 mls/hr IV STAT STA PRN Reason: Protocol Stop: 03/28/18 01:35 Discontinued Medications Ketorolac Tromethamine (Toradol) 30 mg IVP STAT STA Stop: 03/27/18 20:22 Last Admin: 03/27/18 20:43 Dose: 30 mg [facility] Pain Assessment Document 03/27/18 20:43 (Rec: 03/27/18 20:46 [id number] Pain Reassessment Is this a pain reassessment? Yes Presence of Pain Presence of Pain Yes Pain Scale Used Pain Scale Used Numeric Location Pain Location Body Site Abdomen Description Description Sharp Intensity of Pain at present 8 Pain Behavior Grasping Site Aggravating Factors Contant IVP Administration Document 03/27/18 20:43 (Rec: 03/27/18 20:[address]) Charges for Administration # of IVP Administrations 1 Re-Assess: [facility] Pain Assessment Document 03/27/18 21:43 (Rec: 03/27/18 21:55 [id number] Pain Reassessment Is this a pain reassessment? Yes Sleep Is patient sleeping during reassessment? No Presence of Pain Presence of Pain Yes Pain Scale Used Pain Scale Used Numeric Location Pain Location Body Site Abdomen Description Description Constant Intensity of Pain at present 9 Pain Behavior Moaning Pain not relieved and LIP/MD was Yes notified Morphine Sulfate (Morphine) 2 mg IVP STAT STA Stop: 03/27/18 23:54 Ondansetron HCl (Zofran Inj) 4 mg IVP STAT STA Stop: 03/27/18 20:47 Last Admin: 03/27/18 20:56 Dose: 4 mg IVP Administration Document 03/27/18 20:56 (Rec: 03/27/18 20:[address]) Charges for Administration # of IVP Administrations 1 Ondansetron HCl (Zofran Inj) 4 mg IVP ONCE ONE Stop: 03/27/18 23:43 Disposition/Present on Arrival - Present on Arrival Any Indicators Present on Arrival: No History of DVT/PE: No History of Uncontrolled Diabetes: No Urinary Catheter: No History of Decub. Ulcer: No History Surgical Site Infection Following: None - Disposition Have Diagnosis and Disposition been Completed?: Yes Diagnosis: Abdominal pain, Alcoholic cirrhosis, Ascites Disposition: HOSPITALIZED Disposition Time: 00:10 Patient Problems: Current Active Problems Problem Status Onset Abdominal pain Acute Condition: STABLE
--- NOTE | 2018-03-27 23:35 | CT ---
EXAM: CT Abdomen and Pelvis With Intravenous Contrast EXAM DATE/TIME: 03/27/2018 9:20 PM CLINICAL HISTORY: 62 years old, male; Pain; Abdominal pain; Other: S/P paracentesis; Additional info: 62yom, S/P paracentesis, with abdomen pain. TECHNIQUE: Axial computed tomography images of the abdomen and pelvis with intravenous contrast. All CT scans at this facility use at least one of these dose optimization techniques: automated exposure control; mA and/or kV adjustment per patient size (includes targeted exams where dose is matched to clinical indication); or iterative reconstruction. Coronal and sagittal reformatted images were created and reviewed. COMPARISON: CT - ABD PELVIS IV CONTRAST ONLY 2017-12-24 09:54 FINDINGS: Lung bases: Heart size is normal. There coronary artery calcifications. There is mild distal esophageal wall thickening. There is a 5 mm right lower lobe pulmonary nodule. There is atelectasis/scarring at the lung bases. ABDOMEN: Liver: There is fatty infiltration of the liver. Gallbladder and bile ducts: Gallbladder is distended with a calcified stone.Common duct is unremarkable. Pancreas: Pancreas is mildly atrophic. Spleen: unremarkable Adrenals: unremarkable Kidneys and ureters: There are small low attenuation left renal lesions too small to characterize. Kidneys and ureters are otherwise unremarkable. Stomach and bowel: Stomach is incompletely distended which accentuates the gastric wall. Bowel rotation is normal. There is duodenal and jejunal wall and fold thickening. Small bowel is dilated with air-fluid levels. There is fluid and air throughout the small bowel. Terminal ileum is mildly distended with fluid and air. The retrocecal contains a small amount of air. There is fluid, stool and air throughout the colon. PELVIS: Appendix: See stomach and bowel Bladder: Bladder is partially distended. Reproductive: Seminal vesicles and prostate are unremarkable. ABDOMEN and PELVIS: Intraperitoneal space: There is ascites in the abdomen and pelvis.there is decreased ascites compared to the prior study 12/24/17 There is no free air. Bones/joints: Bony structures are osteopenic. There degenerative changes. There is laminectomy and fusion L4/L5/S1. Soft tissues: unremarkable Vasculature: There are calcified phleboliths. There are vascular calcifications. There are small paraesophageal varices. Lymph nodes: There is no pathologic adenopathy. IMPRESSION: 5 mm right lower lobe pulmonary nodule; gallstone, no ductal dilatation; dilated fluid-filled small and large bowel more suggestive of ileus than obstruction; continued ascites, etiology unknown Additional nonemergent findings as described above.
[2018-03-27 23:49] VITALS: O2SAT 99
[2018-03-27] MEDS ORDERED: Morphine 2 mg/ml ISec IVP STA (23:53)
[2018-03-27] MEDS ORDERED: Aztreonam 1 Gm in NS 100mL 100 ML IVPB STA (23:59)
[2018-03-28] MEDS ORDERED: levoFLOXacin 750 mg in D5W 750 MG/150 ML BAG IV STA (00:06)
[2018-03-28 01:06] LABS: URINE BILIRUBIN NEGATIVE (NEGATIVE); URINE BLOOD NEGATIVE (NEGATIVE); URINE GLUCOSE (UA) NEGATIVE (NEGATIVE); URINE LEUKOCYTE ESTERASE NEGATIVE Leu/uL (NEGATIVE); URINE PROTEIN NEGATIVE mg/dL (<30 mg/dL)
[2018-03-28 01:09] LABS: URINE APPEARANCE CLEAR (CLEAR); URINE COLOR YELLOW (YELLOW)
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
[2018-03-28] MEDS ORDERED: HYDROmorphone 0.5 mg/0.5 ml ISec IVP PRN (02:07)
[2018-03-28 08:05] VITALS: TEMP 98.2
[2018-03-28] MEDS ORDERED: levoFLOXacin 750 mg in D5W 750 MG/150 ML BAG IVPB SCH (10:00)
[2018-03-28 15:13] VITALS: BP 126/75; PULSE 75; RESP 20
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
--- NOTE | 2018-03-28 17:37 | RAD ---
HISTORY: Eval for ileus COMPARISON: Abdomen pelvis CT examination 03/27/2018. FINDINGS: BOWEL: Nonobstructive bowel gas pattern. No prominent free intrarenal gas identified. Lumbar spinal fusion hardware an apparent bone stimulators in position at the inferior lumbar sacral spine once again. Calcification of the right upper quadrant is nonspecific and could be renal or gallbladder related. A moderate amount retained fecal material seen throughout the colon. Excreted iodinated material is identified in a partially distended urinary bladder. BONES: As above. OTHER FINDINGS: None. IMPRESSION: Nonobstructive bowel gas pattern appreciable grossly. There is no collapsed large bowel segment identified. There is some gas the distal small bowel but this is a limited finding. Continued clinical and radiographic follow-up are advised. Prior lumbar spinal fusion hardware identified in position.
--- NOTE | 2018-03-28 22:25 | CARD ---
APPROVED REPORT EKG Measurement Heart [id number] <Conclusion> Normal sinus rhythm Normal ECG
== END 2018-03-28 18:35 | disposition home or self-care (01) ==
LOC: ED 19:54 → ERH 21:54 → 5RSO 03-28 01:59 → UNDODISOB 03-28 18:35
PROVIDERS: ADMIT Internal Medicine; ATTEND Internal Medicine
DX: K70.31 Alcoholic cirrhosis of liver with ascites (principal); B19.20 Unspecified viral hepatitis C without hepatic coma; F10.10 Alcohol abuse, uncomplicated; D64.9 Anemia, unspecified; I85.10 Secondary esophageal varices without bleeding; K31.89 Other diseases of stomach and duodenum; K76.6 Portal hypertension; I10 Essential (primary) hypertension; K80.20 Calculus of gallbladder without cholecystitis without obstruction
CPT/HCPCS: 74018; 74177; 80053; 81003; 82550; 83615; 83690; 83735; 84100; 84484; 85025; 85610; 85730; 87040; 87086; 93005; 96374; 96375; 96376; 99285; C9113; G0378; J1170; J1885; J2060; J2270; J2405; Q9967

== ENCOUNTER 2018-08-16 19:44 | Emergency (ER) | payer MEDICARE ==
[2018-08-16 19:48] VITALS: BMI 17.6
[2018-08-16 19:58] VITALS: TEMP 97.7
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
[2018-08-16] MEDS ORDERED: Morphine 2 mg/ml ISec IVP STA (20:31)
[2018-08-16] MEDS ORDERED: Sodium Chloride 0.9% 1,000 ML IV STA (20:31)
[2018-08-16] MEDS ORDERED: Lidocaine 5% Patch TD ONE (20:31)
[2018-08-16 21:45] LABS: BASO # 0.07 K/mm3 (0.0-2.0); BASO % 1.1 % (0.0-3.0); EOS # 0.1 (0.0-0.7); EOS % 1.8 % (1.5-5.0); GRAN # 4.21 (1.4-6.5); GRAN % 67.8 % (50.0-68.0); LYMPH # 1.2 (1.2-3.4); LYMPH % 18.8 % (22.0-35.0); MEAN CELL VOLUME 72.4 fl (80.0-105.0); MEAN CORPUSCULAR HGB CONC 30.3 g/dl (31.0-37.0); MEAN PLATELET VOLUME 9.9 fl (7.0-11.0); MONO # 0.7 (0.1-0.6); MONO % 10.5 % (1.0-6.0); RBC 4.1 10^6/uL (3.5-6.1); RED CELL DISTRIBUTION WIDTH 18.3 % (11.5-14.5); WHITE BLOOD COUNT 6.2 10^3/uL (4.5-11.0)
[2018-08-16 21:49] VITALS: RESP 18
[2018-08-16 21:49] LABS: INR 1.35; PARTIAL THROMBOPLASTIN TIME 29.9 Seconds (25.1-36.5); PROTHROMBIN TIME 15.5 SECONDS (9.4-12.5)
[2018-08-16 22:01] LABS: ALB/GLOB RATIO 0.8 (1.1-1.8); ALBUMIN 3.2 g/dL (3.0-4.8); ALT/SGPT 21 U/L (7-56); AMYLASE 60 U/L (35-125); AST/SGOT 20 U/L (17-59); BLOOD UREA NITROGEN 11 mg/dL (7-21); CALCIUM 8.4 mg/dL (8.4-10.5); GFR NON-AFRICAN AMERICAN > 60; LIPASE 48 U/L (23-300)
[2018-08-16] MEDS ORDERED: Oxycodone/Acetaminophen 5/325 mg Tab PO STA (22:57)
[2018-08-16] MEDS ORDERED: Magnesium Citrate Oral SOL (300 ml) PO ONE (23:43)
[2018-08-16] MEDS ORDERED: Mineral Oil Enema 135 ml RC ONE (23:48)
[2018-08-17 05:11] VITALS: BP 142/68; PULSE 68; O2SAT 97
--- NOTE | 2018-08-17 11:54 | CT ---
PROCEDURE: CT Abdomen and Pelvis without Oral or IV contrast. HISTORY: abdominal pain s/p paracentesis COMPARISON: CT abdomen pelvis without IV contrast performed 03/27/18 TECHNIQUE: Contiguous axial images of the abdomen and pelvis. No oral or IV contrast administered. Coronal and Sagittal reformats generated and reviewed. Radiation dose: Total exam DLP = 257.09 mGy-cm. This CT exam was performed using one or more of the following dose reduction techniques: Automated exposure control, adjustment of the mA and/or kV according to patient size, and/or use of iterative reconstruction technique. FINDINGS: There is limited evaluation of the solid organs without the administration of IV contrast. Examination limited by streak, metallic, and motion artifact. LOWER THORAX: No visible consolidation, pleural effusion, or pneumothorax. Trace pericardial effusion. Esophageal wall thickening and small hiatal hernia. LIVER: Nodular hepatic contour. Heterogeneous hepatic parenchyma. GALLBLADDER AND BILE DUCTS: Cholelithiasis. Pericholecystic fluid/gallbladder-wall thickening. PANCREAS: Unremarkable unenhanced appearance. SPLEEN: Unremarkable unenhanced appearance. ADRENALS: Unremarkable unenhanced appearance. KIDNEYS AND URETERS: Proximal right hydroureter and hydronephrosis. No left-sided hydronephrosis. No obstructing calculus identified bilaterally. BLADDER: Urinary bladder distension. REPRODUCTIVE: Grossly unremarkable. APPENDIX: The appendix is not identified. BOWEL: The stomach is nondistended and appears thick walled.. Lack of oral contrast limits evaluation for bowel pathology. No evidence of obstruction. Marked small bowel wall thickening, particularly in the right lower quadrant; correlate clinically for possibility of enteritis. PERITONEUM: Abdominal and pelvic ascites. No definite free air. LYMPH NODES: No bulky lymphadenopathy identified. VASCULATURE: Dense atherosclerotic calcifications of the aorta and branches. No aortic aneurysm. BONES: Degenerative changes. Postsurgical changes of the lumbar spine with streak artifact emanating from hardware at L4 through S1 levels. OTHER FINDINGS: None. IMPRESSION: Limited study. Abdominal and pelvic ascites. Marked small bowel wall thickening, particularly in the right lower quadrant; indeterminate etiology, correlate clinically for possibility of enteritis. Recommend continued follow-up as indicated. Urinary bladder distension. Cholelithiasis. Pericholecystic fluid/gallbladder-wall thickening. Recommend right upper quadrant ultrasound. Correlate clinically for possibility of cholecystitis. Nodular hepatic contour. Heterogeneous hepatic parenchyma. Correlate clinically for cirrhosis. Marked gastric wall thickening. Esophageal wall thickening and small hiatal hernia. Suggest follow-up endoscopy if indicated. Additional findings as above. Preliminary impression was provided by REINA Arellano. Study marked for PA review.
--- NOTE | 2018-08-17 13:24 | CARD ---
APPROVED REPORT Date of service: 08/16/2018 EKG Measurement Heart [id number] <Conclusion> Normal sinus rhythm Normal ECG
--- NOTE | 2018-08-19 16:32 | ED PDOC ---
ED Additional Note - Physician Additional Note Physician Additional Note: called patient and left message to call back regarding CT results. ct abd/pelvis; IMPRESSION: Limited study. Abdominal and pelvic ascites. Marked small bowel wall thickening, particularly in the right lower quadrant; indeterminate etiology, correlate clinically for possibility of enteritis. Recommend continued follow-up as indicated. Urinary bladder distension. Cholelithiasis. Pericholecystic fluid/gallbladder-wall thickening. Recommend right upper quadrant ultrasound. Correlate clinically for possibility of cholecystitis. Nodular hepatic contour. Heterogeneous hepatic parenchyma. Correlate clinically for cirrhosis. Marked gastric wall thickening. Esophageal wall thickening and small hiatal hernia. Suggest follow-up endoscopy if indicated. Additional findings as above. this is 2nd attempt to contact patient; will send certified letter.
== END 2018-08-17 02:39 | disposition home or self-care (01) ==
LOC: ED 19:44
DX: K59.00 Constipation, unspecified (principal); R10.9 Unspecified abdominal pain; F17.210 Nicotine dependence, cigarettes, uncomplicated
CPT/HCPCS: 74176; 80053; 82140; 82150; 83690; 85025; 85610; 85730; 93005; 96374; 96375; 99285; J2270; J2405; J7030

== ENCOUNTER 2018-08-24 12:57 | Emergency (ER) | payer MEDICARE ==
[2018-08-24 13:17] VITALS: BMI 16.9
[2018-08-24 13:23] VITALS: RESP 18; O2SAT 100
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
[2018-08-24 14:02] LABS: BASO # 0.08 K/mm3 (0.0-2.0); BASO % 1.3 % (0.0-3.0); EOS # 0.1 (0.0-0.7); EOS % 2.3 % (1.5-5.0); GRAN # 4.12 (1.4-6.5); GRAN % 67.2 % (50.0-68.0); HEMOGLOBIN 8.9 g/dL (14.0-18.0); LYMPH # 1.2 (1.2-3.4); LYMPH % 18.8 % (22.0-35.0); MEAN CELL VOLUME 72.9 fl (80.0-105.0); MEAN CORPUSCULAR HEMOGLOBIN 21.9 pg (25.0-35.0); MEAN CORPUSCULAR HGB CONC 30.1 g/dl (31.0-37.0); MEAN PLATELET VOLUME 9.9 fl (7.0-11.0); MONO # 0.6 (0.1-0.6); MONO % 10.4 % (1.0-6.0); RBC 4.06 10^6/uL (3.5-6.1); RED CELL DISTRIBUTION WIDTH 18.4 % (11.5-14.5); WHITE BLOOD COUNT 6.1 10^3/uL (4.5-11.0)
[2018-08-24 14:40] LABS: ALB/GLOB RATIO 0.8 (1.1-1.8); ALBUMIN 3.3 g/dL (3.0-4.8); ALT/SGPT 19 U/L (7-56); AST/SGOT 31 U/L (17-59); BLOOD UREA NITROGEN 12 mg/dL (7-21); CALCIUM 8.7 mg/dL (8.4-10.5); GFR NON-AFRICAN AMERICAN > 60; LIPASE 84 U/L (23-300)
--- NOTE | 2018-08-24 15:02 | US ---
HISTORY: RUQ pain, assess gallbladder, ascites COMPARISON: CT abdomen and pelvis without contrast performed 08/16/18 TECHNIQUE: Sonographic evaluation of the abdomen. FINDINGS: LIVER: Measures 13.3 cm in sagittal dimension. Echogenic liver may be seen in setting of hepatic parenchymal disease or fatty infiltration. Nodular hepatic contour. No focal hepatic mass identified. The main portal vein appears patent with normal directional flow. No intrahepatic bile duct dilatation. GALLBLADDER: Gallstones. No gallbladder wall thickening. Negative sonographic Valenzuela's sign as assessed by the identification technician. COMMON BILE DUCT: Measures 3 mm. PANCREAS: Not well visualized. RIGHT KIDNEY: Measures 11.5 x 6.7 x 6.4 cm. Mild hydronephrosis. No obstructing calculus identified. LEFT KIDNEY: Measures 12.4 x 7.2 x 5.8 cm. No obstructing calculus or hydronephrosis identified. SPLEEN: Measures approximately 11.2 cm. AORTA: Not visualized. IVC: Not visualized. OTHER FINDINGS: Moderate partially imaged abdominal and pelvic ascites noted. IMPRESSION: Echogenic liver may be seen in setting of hepatic parenchymal disease or fatty infiltration. Nodular hepatic contour consistent with cirrhosis. Moderate partially imaged abdominal and pelvic ascites noted. Cholelithiasis. Mild right-sided hydronephrosis.
[2018-08-24 15:25] VITALS: BP 152/90; TEMP 98.3
[2018-08-24 15:27] VITALS: PULSE 72
--- NOTE | 2018-08-25 08:14 | CARD ---
APPROVED REPORT Date of service: 08/24/2018 EKG Measurement Heart [id number] <Conclusion> Normal sinus rhythm Normal ECG No change
== END 2018-08-24 15:18 | disposition home or self-care (01) ==
LOC: ED 12:57
DX: K80.20 Calculus of gallbladder without cholecystitis without obstruction (principal); D64.9 Anemia, unspecified; K74.60 Unspecified cirrhosis of liver

== ENCOUNTER 2018-10-11 10:26 | Outpatient (CLI) | payer MEDICARE | END 2018-10-11 10:27 | disposition home or self-care (01) | LOC: LAB 10:26 ==